=== PATIENT | female | born 1965 | race Caucasian/White ===

== ENCOUNTER 2017-10-07 | Emergency (ER) | payer BC ==
--- NOTE | 2017-10-07 20:25 | EDPHYS ---
Physician Documentation [facility] Name: Ilda Arndt Age: 52 yrs Sex: Female : 1965 Arrival Date: 10/07/2017 Time: 19:49 Bed 23 Private MD: Ruslan Landin V ED Physician Wade Choe HPI: 10/07 20:18 This 52 yrs old Female presents to ER via Ambulatory with complaints of gs Toothache. 20:18 The patient presents with broken tooth/teeth. The problem is located in the upper right gs first bicuspid. Onset: The symptoms/episode began/occurred 2 day(s) ago. Duration: The symptoms are continuous. Modifying factors: the symptoms are aggravated by nothing. Associated signs and symptoms: Pertinent negatives: fever. Severity of symptoms: At their worst the symptoms were moderate, in the emergency department the symptoms are unchanged. The patient has experienced similar episodes in the past, a few times. 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 - Social history:: Smoking status: Patient/guardian denies using tobacco. ROS: 20:18 All other systems are negative. gs Exam: 20:18 Head/Face: Normocephalic, atraumatic. Eyes: Pupils equal round and reactive to light, gs extra-ocular motions intact. Lids and lashes normal. Conjunctiva and sclera are non-icteric and not injected. Cornea within normal limits. Periorbital areas with no swelling, redness, or edema. Neck: Trachea midline, no thyromegaly or masses palpated, and no cervical lymphadenopathy. Supple, full range of motion without nuchal rigidity, or vertebral point tenderness. No Meningismus. Chest/axilla: Normal chest wall appearance and motion. Nontender with no deformity. No lesions are appreciated. 20:18 Constitutional: The patient appears alert, awake. 20:18 ENT: Dental exam: abscess, is not appreciated, cellulitis, is not appreciated, dental caries, that is mild, fractured teeth are noted, specifically the upper right first bicuspid (#5). Vital Signs: 19:57 BP 161 / 100; Pulse 76; Resp 16; Temp 97.7(O); Pulse Ox 100% on R/A; Weight 90.72 kg; la1 Height 5 ft. 4 in. (162.56 cm); 19:57 Body Mass Index 34.33 (90.72 kg, 162.56 cm) la1 MDM: 20:02 Patient medically screened. 20:18 Differential diagnosis: dental caries, gingivitis, dental abscess, pericoronitis. Data gs reviewed: vital signs, nurses notes. 20:30 ED course: discussed tramadol use pt understands and has taken tramadol and topamax gs together without side effect, i voiced concern to prescribe pr request due to painful condition. have given appropriate risks and benefits pt request drug. contraindication is not absolute. Administered Medications: No medications were administered Disposition: 18 20:24 Discharged to Home. Impression: Fracture of tooth (traumatic), Dental caries. - Condition is Stable. - Prescriptions for Amoxicillin 500 mg Oral Capsule - take 1 capsule by ORAL route every 8 hours for 10 days; 30 tablet. Ultram 50 mg Oral Tablet - take 1 tablet by ORAL route every 6 hours As needed; 10 tablet. - Medication Reconciliation Form, Thank You Letter, Antibiotic Education, Prescription Opioid Use form. - Follow up: Private Physician; When: 2 - 3 days; Reason: Re-evaluation by your physician. Signatures: Ty Chapa RN RN la1 Wade Choe MD MD Cindy Velásquez RN RN tl3
--- NOTE | 2017-10-07 20:25 | ER ---
Nurse's Notes [facility] Name: Ilda Arndt Age: 52 yrs Sex: Female : 1965 Arrival Date: 10/07/2017 Time: 19:49 Bed 23 Private MD: Ruslan Landin V Diagnosis: Fracture of tooth (traumatic);Dental caries Presentation: 10/07 19:55 Presenting complaint: Patient states: I am having dental pain that I think is caused by la1 an abscess. Pain for 3 days. I have a dental appointment tomorrow morning. Transition of care: patient was not received from another setting of care. Onset of symptoms was October 07, 2017. Care prior to arrival: None. 19:55 Method Of Arrival: Ambulatory la1 19:55 Acuity: ANDRE 5 la1 Triage Assessment: 20:27 EENT: No signs and/or symptoms were reported regarding the EENT system. tl3 20:28 EENT:. EENT:. 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 - Social history:: Smoking status: Patient/guardian denies using tobacco. Screenin:00 Abuse screen: Denies threats or abuse. Nutritional screening: No deficits noted. tl3 Tuberculosis screening: No symptoms or risk factors identified. Fall Risk None identified. Assessment: 20:00 General: Appears uncomfortable, well groomed, well developed, well nourished, Behavior tl3 is calm, cooperative, appropriate for age. Pain: Complains of pain in upper left first bicuspid and upper left second bicuspid Pain currently is 10 out of 10 on a pain scale. Neuro: Level of Consciousness is awake, alert, obeys commands, Oriented to person, place, time, situation, Appropriate for age. Cardiovascular: Reports None. Cardiovascular: Heart tones S1 S2 present. Respiratory: Airway is patent Trachea midline Respiratory effort is even, unlabored, Respiratory pattern is regular, symmetrical, Breath sounds are clear bilaterally. GI: No signs and/or symptoms were reported involving the gastrointestinal system. : No signs and/or symptoms were reported regarding the genitourinary system. EENT: No signs and/or symptoms were reported regarding the EENT system. Derm: No signs and/or symptoms reported regarding the dermatologic system. Musculoskeletal: No signs and/or symptoms reported regarding the musculoskeletal system. 20:29 Reassessment: No changes from previously documented assessment. Patient and/or family tl3 updated on plan of care and expected duration. Pain level reassessed. Dr Choe at bedside discussing POC. Vital Signs: 19:57 BP 161 / 100; Pulse 76; Resp 16; Temp 97.7(O); Pulse Ox 100% on R/A; Weight 90.72 kg; la1 Height 5 ft. 4 in. (162.56 cm); 19:57 Body Mass Index 34.33 (90.72 kg, 162.56 cm) la1 ED Course: 19:49 Patient arrived in ED. do 19:49 Ruslan Landin MD is Private Physician. do 19:56 Triage completed. la1 19:57 Arm band placed on left wrist. la1 19:58 Cindy Velásquez RN is Primary Nurse. tl3 19:59 Wade Choe MD is Attending Physician. gs 20:25 Resting quietly. tl3 20:25 Patient has correct armband on for positive identification. Bed in low position. tl3 20:25 No provider procedures requiring assistance completed. Patient did not have IV access tl3 during this emergency room visit. Administered Medications: No medications were administered Outcome: 20:24 Discharge ordered by . gs 20:47 Patient left the ED. tl3 Signatures: Ty Chapa RN RN la1 Franchesca Gordon Gregory, MD MD Cindy Velásquez RN RN tl3
== END 2017-10-07 20:47 | disposition home or self-care (01) ==
CPT/HCPCS: 99281

== ENCOUNTER 2018-01-17 23:33 | Emergency (ER) | payer BC ==
[2018-01-18] MEDS ORDERED: NA CHLORIDE 0.9% 1,000 ML ONE (01:01)
[2018-01-18] MEDS ORDERED: ONDANSETRON 4 MG/2 ML VIAL ONE (01:01)
[2018-01-18] MEDS ORDERED: KETOROLAC 30 MG/ML INJ ONE (01:01)
--- NOTE | 2018-01-18 02:07 | EDPHYS ---
Physician Documentation [facility] Name: Ilda Arndt Age: 52 yrs Sex: Female : 1965 Arrival Date: 01/17/2018 Time: 23:36 Bed 18 Private MD: ED Travis Garsia HPI: 01/18 00:35 This 52 yrs old Female presents to ER via Ambulatory with complaints of cp Headache. 00:35 The patient complains of pain to the all over. The patient describes the headache as cp aching. Onset: The symptoms/episode began/occurred yesterday, improved after taking Imitrex, but returned this morning. Associated signs and symptoms: Pertinent positives: nausea, Photophobia. Headache History: The patient has had previous headaches and this one is similar to previous episodes. 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 N/A - Post-menopause fc Historical: - Allergies: 23:54 Bactrim; fc 23:54 Biaxin; fc 23:54 Codeine; fc 23:54 Latex, Natural Rubber; fc - Home Meds: 23:54 Glucophage 1,000 mg Oral tab 2 times per day [Active]; Topamax 200 mg Oral tab 1 tab 2 fc times per day [Active]; vitamiin d daily [Active]; L-Methylfolate 7.5 mg Oral tab daily [Active]; - PMHx: 23:54 Arthritis; chiari malformation; Depression; ehler-danlos syndrome; Upper Extremity fc Thrombus; Diabetes - NIDDM; - PSHx: 23:54 Tubal ligation; Cholecystectomy; sinus surg; tummy tuck; breast reduction; fc - Immunization history:: Last tetanus immunization: up to date. - Social history:: Smoking status: Patient/guardian denies using tobacco. - Ebola Screening: : Patient negative for fever greater than or equal to 101.5 degrees Fahrenheit, and additional compatible Ebola Virus Disease symptoms Patient denies exposure to infectious person Patient denies travel to an Ebola-affected area in the 21 days before illness onset. ROS: 01/18 00:40 Constitutional: Negative for body aches, chills, fever, poor PO intake. cp 00:40 Eyes: Positive for photophobia, Negative for discharge, redness, vision loss. cp 00:40 ENT: Negative for drainage from ear(s), ear pain, sinus congestion, sinus pain, sore throat, difficulty swallowing, difficulty handling secretions. 00:40 Neck: Negative for pain with movement, pain at rest, stiffness, swollen nodes. 00:40 Cardiovascular: Negative for chest pain, palpitations. 00:40 Respiratory: Negative for cough, shortness of breath, wheezing. 00:40 Abdomen/GI: Positive for nausea, Negative for abdominal pain, vomiting, diarrhea, constipation. 00:40 : Negative for urinary symptoms. 00:40 Skin: Negative for cellulitis, rash. 00:40 Neuro: Positive for headache, Negative for altered mental status, dizziness, speech changes, weakness. 00:40 All other systems are negative. Exam: 00:47 Constitutional: The patient appears in no acute distress, alert, awake, cp non-diaphoretic, non-toxic, well developed, well nourished. 00:47 Head/Face: Normocephalic, atraumatic. Eyes: Pupils equal round and reactive to light, cp extra-ocular motions intact. Lids and lashes normal. Conjunctiva and sclera are non-icteric and not injected. Cornea within normal limits. Periorbital areas with no swelling, redness, or edema. ENT: Nares patent. No nasal discharge, no septal abnormalities noted. Tympanic membranes are normal and external auditory canals are clear. Oropharynx with no redness, swelling, or masses, exudates, or evidence of obstruction, uvula midline. Mucous membranes moist. Neck: Trachea midline, no thyromegaly or masses palpated, and no cervical lymphadenopathy. Supple, full range of motion without nuchal rigidity, or vertebral point tenderness. No Meningismus. 00:47 Chest/axilla: Inspection: normal, Palpation: is normal, no crepitus, no tenderness. 00:47 Cardiovascular: Rate: normal, Rhythm: regular, JVD: is not appreciated. 00:47 Respiratory: the patient does not display signs of respiratory distress, Respirations: normal, no use of accessory muscles, no retractions, no splinting, no tachypnea, labored breathing, is not present, Breath sounds: are clear throughout, no decreased breath sounds, no stridor, no wheezing. 00:47 Abdomen/GI: Exam negative for discomfort, distension, guarding, Inspection: abdomen appears normal. 00:47 Back: pain, is absent, ROM is normal. 00:47 Skin: cellulitis, is not appreciated, no rash present. 00:47 Neuro: Orientation: to person, place \T\ time. Mentation: lucid, able to follow commands, Cerebellar function: is grossly normal, Motor: moves all fours, strength is normal, Sensation: is normal. Vital Signs: 01/17 23:56 BP 139 / 76; Pulse 96; Resp 18; Temp 97.9(O); Pulse Ox 98% on R/A; Weight 88.9 kg (R); fc Height 5 ft. 4 in. (162.56 cm) (R); Pain 7/10; 01/18 00:56 BP 142 / 70; Pulse 60; Resp 16 S; Pulse Ox 100% on R/A; bs1 01:56 BP 134 / 89; Pulse 76; Resp 16; Temp 98; Pulse Ox 98% on R/A; Pain 4/10; bs1 01/17 23:56 Body Mass Index 33.64 (88.90 kg, 162.56 cm) fc MDM: 00:17 Patient medically screened. cp 01:00 Differential diagnosis: cluster headache, hypertensive headache, hyponatremia, cp intracerebral hemorrhage, meningitis, migraine, sinusitis, subarachnoid bleed, tension headache, trigeminal neuralgia. 02:05 Data reviewed: vital signs, nurses notes. Response to treatment: the patient's symptoms cp have markedly improved after treatment, Patient reports headache and nausea improved. Will discharge to home for continued monitoring. 01/18 00:34 Order name: IV; Complete Time: 01:10 cp Administered Medications: 01:10 Drug: Zofran 4 mg Route: IVP; Site: left antecubital; bs1 02:37 Follow up: Response: No adverse reaction bs1 01:10 Drug: TORadol 30 mg Route: IVP; Site: left antecubital; bs1 02:37 Follow up: Response: No adverse reaction bs1 01:12 Drug: NS 0.9% 1000 ml Route: IV; Rate: 1 bolus; Site: left antecubital; bs1 02:37 Follow up: IV Status: Completed infusion bs1 Disposition: 02:30 Chart complete. cp 06:54 Co-signature as Attending Physician, Travis Atwood MD I agree with the assessment and kirstin plan of care. Disposition: 07/26/18 02:06 Discharged to Home. Impression: Headache. - Condition is Stable. - Discharge Instructions: Migraine Headache. - Prescriptions for Imitrex 50 mg Oral Tablet - take 1 tablet by ORAL route one time - x 1 dose with fluids as early as possible after the onset of a migraine attack; if headache returns, the dose may be repeated after 2 hours, not to exceed a total daily dose of 4 tablets;. Zofran 4 mg Oral Tablet - take 1 tablet by ORAL route every 12 hours As needed; 20 tablet. - Medication Reconciliation Form, Thank You Letter, Antibiotic Education, Prescription Opioid Use form. - Follow up: Private Physician; When: 1 - 2 days; Reason: Recheck today's complaints. - Problem is an acute exacerbation. - Symptoms have improved. Signatures: Travis Atwood MD MD cha Chretien, Felicia, RN RN fc Travis Marie PA PA cp Salazar, Brittany, RN RN bs1 Corrections: (The following items were deleted from the chart) 02:38 02:06 01/18/2018 02:06 Discharged to Home. Impression: Headache. Condition is Stable. bs1 Forms are Medication Reconciliation Form, Thank You Letter, Antibiotic Education, Prescription Opioid Use. Follow up: Private Physician; When: 1 - 2 days; Reason: Recheck today's complaints. Problem is an acute exacerbation. Symptoms have improved. cp
--- NOTE | 2018-01-18 02:07 | ER ---
Nurse's Notes [facility] Name: Ilda Arndt Age: 52 yrs Sex: Female : 1965 Arrival Date: 01/17/2018 Time: 23:36 Bed 18 Private MD: Diagnosis: Headache Presentation: 01/17 23:50 Presenting complaint: Patient states: that she is having a headache. Went to the dentist and her bp was high. No work done. Positive photophobia and nausea. Transition of care: patient was not received from another setting of care. Onset of symptoms was January 17, 2018 at 07:00. Risk Assessment: Do you want to hurt yourself or someone else? Patient reports no desire to harm self or others. Initial Sepsis Screen: Does the patient meet any 2 criteria? No. Patient's initial sepsis screen is negative. Does the patient have a suspected source of infection? No. Patient's initial sepsis screen is negative. Care prior to arrival: Medication(s) given: Motrin, 800 mg, last at 1600. 23:50 Method Of Arrival: Ambulatory 23:50 Acuity: ANDRE 3 Triage Assessment: 23:55 Headache History: The patient has had previous headaches and this one is similar to previous episodes. General: Appears uncomfortable, obese, Behavior is calm, cooperative, appropriate for age. Pain: Complains of pain in head Pain currently is 7 out of 10 on a pain scale. Quality of pain is described as aching, throbbing, Pain began today Is continuous, Also complains of nausea, photophobia. EENT: No deficits noted. Neuro: Level of Consciousness is awake, alert, obeys commands, Oriented to person, place, time, situation, Moves all extremities. Gait is steady, Speech is normal, Reports headache in entire. Cardiovascular: No deficits noted. Respiratory: No deficits noted. GI: No deficits noted. : No deficits noted. Derm: Skin is pink, warm \\T\\ dry. Musculoskeletal: Circulation, motion, and sensation intact. Capillary refill < 3 seconds, Range of motion: intact in all extremities. 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 - Social history:: Smoking status: Patient/guardian denies using tobacco. - Ebola Screening: : Patient negative for fever greater than or equal to 101.5 degrees Fahrenheit, and additional compatible Ebola Virus Disease symptoms Patient denies exposure to infectious person Patient denies travel to an Ebola-affected area in the 21 days before illness onset. Screenin/26 01:14 Abuse screen: Denies threats or abuse. Denies injuries from another. Nutritional bs1 screening: No deficits noted. Tuberculosis screening: No symptoms or risk factors identified. Fall Risk None identified. Assessment: 00:30 General: Appears in no apparent distress. uncomfortable. Pain: Complains of pain in bs1 headache Pain does not radiate. Neuro: Level of Consciousness is awake, alert, obeys commands, Oriented to person, place, time, situation, Appropriate for age Speech is slurred, Facial symmetry appears normal, Reports dizziness, headache in entire. Cardiovascular: Denies chest pain, shortness of breath, Heart tones S1 S2 present Capillary refill < 3 seconds Patient's skin is warm and dry. Respiratory: Airway is patent Trachea midline Respiratory effort is even, unlabored, Respiratory pattern is regular, symmetrical, Breath sounds are clear bilaterally. GI: No signs and/or symptoms were reported involving the gastrointestinal system. : No signs and/or symptoms were reported regarding the genitourinary system. EENT: No signs and/or symptoms were reported regarding the EENT system. Derm: Skin is intact, Skin is pink, warm \\T\\ dry. normal. Musculoskeletal: Circulation, motion, and sensation intact. Capillary refill < 3 seconds, Range of motion: intact in all extremities. 01:30 Reassessment: No changes from previously documented assessment. Patient and/or family bs1 updated on plan of care and expected duration. Pain level reassessed. Patient is alert, oriented x 3, equal unlabored respirations, skin warm/dry/pink. Patient covering eyes with hands. 02:30 Reassessment: Patient appears in no apparent distress at this time. Patient and/or bs1 family updated on plan of care and expected duration. Pain level reassessed. Patient is alert, oriented x 3, equal unlabored respirations, skin warm/dry/pink. Patient states "My head is not hurting as bad as it was." Patient states feeling better. Patient states symptoms have improved. Vital Signs: 01/17 23:56 BP 139 / 76; Pulse 96; Resp 18; Temp 97.9(O); Pulse Ox 98% on R/A; Weight 88.9 kg (R); fc Height 5 ft. 4 in. (162.56 cm) (R); Pain 7/10; 01/18 00:56 BP 142 / 70; Pulse 60; Resp 16 S; Pulse Ox 100% on R/A; bs1 01:56 BP 134 / 89; Pulse 76; Resp 16; Temp 98; Pulse Ox 98% on R/A; Pain 4/10; bs1 01/17 23:56 Body Mass Index 33.64 (88.90 kg, 162.56 cm) ED Course: 01/17 23:36 Patient arrived in ED. ds1 23:52 Triage completed. fc 23:54 Arm band placed on Patient placed in waiting room, Patient notified of wait time. 01/18 00:17 Travis Marie PA is PHCP. cp 00:17 Travis Atwood MD is Attending Physician. cp 00:25 Rebekah Bergman RN is Primary Nurse. bs1 01:00 Inserted saline lock: 24 gauge in left antecubital area, using aseptic technique. bs1 01:15 Patient has correct armband on for positive identification. Bed in low position. Call bs1 light in reach. Side rails up X 1. Pulse ox on. NIBP on. 02:34 No provider procedures requiring assistance completed. IV discontinued, bleeding bs1 controlled, No redness/swelling at site. Pressure dressing applied. Administered Medications: 01:10 Drug: Zofran 4 mg Route: IVP; Site: left antecubital; bs1 02:37 Follow up: Response: No adverse reaction bs1 01:10 Drug: TORadol 30 mg Route: IVP; Site: left antecubital; bs1 02:37 Follow up: Response: No adverse reaction bs1 01:12 Drug: NS 0.9% 1000 ml Route: IV; Rate: 1 bolus; Site: left antecubital; bs1 02:37 Follow up: IV Status: Completed infusion bs1 Outcome: 02:06 Discharge ordered by MD. cp 02:35 Discharged to home ambulatory. bs1 02:35 Condition: stable 02:35 Discharge instructions given to patient, Instructed on discharge instructions, follow up and referral plans. medication usage, Demonstrated understanding of instructions, follow-up care, medications, Prescriptions given X 2. 02:38 Patient left the ED. bs1 Signatures: Alexa Seymour RN RN Holley Alaniz ds1 Travis Marie PA PA cp Salazar, Brittany, RN RN bs1 Corrections: (The following items were deleted from the chart) 01/17 23:55 23:54 Arm band placed on Patient placed in an exam room, [facility], [facility]
== END 2018-01-18 02:38 | disposition home or self-care (01) ==
LOC: ER 23:33
DX: R51 Headache (principal); E11.9 Type 2 diabetes mellitus without complications; Z88.6 Allergy status to analgesic agent; Z88.3 Allergy status to other anti-infective agents; Z91.040 Latex allergy status
CPT/HCPCS: 96361; 96374; 96375; 99284; J2405; J7030

== ENCOUNTER 2018-01-23 17:43 | Emergency (ER) | payer BC ==
[2018-01-23] MEDS ORDERED: FAMOTIDINE 20 MG/2 ML VIAL IV ONE (18:25)
[2018-01-23] MEDS ORDERED: NA CHLORIDE 0.9% 1,000 ML ONE (18:25)
[2018-01-23] MEDS ORDERED: predniSONE 20 MG TAB ONE (18:25)
[2018-01-23] MEDS ORDERED: DIPHENHYDRAMINE 50 MG/ML VIAL ONE (18:25)
[2018-01-23] MEDS ORDERED: METHYLPREDNISOLONE 125 MG INJ ONE (18:25)
[2018-01-23 18:45] LABS: Hematocrit 40.5 % (36.0-45.0); MCH 31.3 pg (27.0-35.0); MCV 89.4 fL (80-100); MPV 8.1 fL (7.6-11.3); RBC Red Blood Cell Count 4.54 M/uL (3.86-4.86)
[2018-01-23 18:57] LABS: Albumin 3.9 g/dL (3.4-5.0); Bilirubin Total 0.5 mg/dL (0.2-1.0); Potassium 3.4 mmol/L (3.5-5.1); Protein, Total 7.6 g/dL (6.4-8.2)
--- NOTE | 2018-01-23 18:58 | ER ---
Nurse's Notes [facility] Name: Ilda Arndt Age: 52 yrs Sex: Female : 1965 Arrival Date: 01/23/2018 Time: 17:44 Bed 23 Private MD: Ruslan Landin V Diagnosis: Urticaria;Bee allergy status;Type 2 diabetes mellitus;Urinary tract infection, site not specified Presentation: 01/23 17:52 Presenting complaint: Patient states: was at a resale shop and a mud dauber insect iw brushed against her left forearm, noticed a red welt a few minutes later, pt took Benadryl but and redness to arm has subsided but now has hives to top of her head, very itchy and feels like her throat is "fluffy", 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 Transition of care: patient was not received from another setting of care. Onset: The symptoms/episode began/occurred 1 hour(s) ago. Anaphylaxis evaluation, no signs or symptoms of anaphylaxis were noted. Onset of symptoms was January 23, 2018. Risk Assessment: Do you want to hurt yourself or someone else? Patient reports no desire to harm self or others. Initial Sepsis Screen: Does the patient meet any 2 criteria? No. Patient's initial sepsis screen is negative. Does the patient have a suspected source of infection? No. Patient's initial sepsis screen is negative. Care prior to arrival: Medication(s) given: Benadryl PO. 17:52 Method Of Arrival: Ambulatory iw 17:52 Acuity: ANDRE 3 iw Historical: - Allergies: 17:57 Bactrim; iw 17:57 Biaxin; iw 17:57 Codeine; iw 17:57 Latex, Natural Rubber; iw - PMHx: 17:57 Arthritis; chiari malformation; Depression; Diabetes - NIDDM; ehler-danlos syndrome; iw Upper Extremity Thrombus; - PSHx: 17:57 Tubal ligation; Cholecystectomy; sinus surg; tummy tuck; breast reduction; iw - Immunization history:: Adult Immunizations up to date. - Social history:: Smoking status: Patient/guardian denies using tobacco. - Ebola Screening: : No symptoms or risks identified at this time. - Family history:: not pertinent. Screenin:07 Abuse screen: Denies threats or abuse. Denies injuries from another. Nutritional hb screening: No deficits noted. Tuberculosis screening: No symptoms or risk factors identified. Fall Risk None identified. Assessment: 18:08 General: Appears in no apparent distress. Behavior is calm, cooperative. Pain: Denies hb pain. Neuro: Level of Consciousness is awake, alert, obeys commands, Oriented to person, place, time, situation. Cardiovascular: Heart tones S1 S2 present Capillary refill < 3 seconds Patient's skin is warm and dry. Respiratory: Airway is patent Trachea midline Respiratory effort is even, unlabored, Respiratory pattern is regular, symmetrical, Breath sounds are clear bilaterally. GI: No signs and/or symptoms were reported involving the gastrointestinal system. : No signs and/or symptoms were reported regarding the genitourinary system. EENT: No signs and/or symptoms were reported regarding the EENT system. Derm: Skin is intact, is healthy with good turgor, Rash noted that is urticaria, on scalp. Musculoskeletal: No signs and/or symptoms reported regarding the musculoskeletal system. Vital Signs: 17:56 BP 141 / 97; Pulse 90; Resp 18 S; Temp 98.2; Pulse Ox 100% on R/A; Weight 89.81 kg; iw Height 5 ft. 4 in. (162.56 cm); Pain 0/10; 18:41 BP 136 / 86; Pulse 80; Resp 16; Pulse Ox 100% on R/A; Pain 0/10; hb 17:56 Body Mass Index 33.99 (89.81 kg, 162.56 cm) iw ED Course: 17:44 Patient arrived in ED. sb2 17:44 Ruslan Landin MD is Private Physician. sb2 17:52 Travis Atwood MD is Attending Physician. kirstin 17:56 Triage completed. iw 17:56 Arm band placed on. iw 18:07 Yina Jansen, RN is Primary Nurse. hb 18:07 Patient has correct armband on for positive identification. Bed in low position. Call hb light in reach. Side rails up X 1. 18:07 Inserted saline lock: 20 gauge in right antecubital area, using aseptic technique. hb 18:49 Comprehensive Metabolic Panel Sent. hb 18:49 CBC w/o diff Sent. hb 18:56 Ruslan Landin MD is Referral Physician. kirstin 20:35 No provider procedures requiring assistance completed. IV discontinued, intact, mg2 bleeding controlled, No redness/swelling at site. Pressure dressing applied. Administered Medications: 18:20 Drug: NS 0.9% 1000 ml Route: IV; Rate: 1 bolus; Site: left antecubital; hb 19:02 Follow up: IV Status: Completed infusion hb 01/24 07:18 Follow up: Response: No adverse reaction hb 01/23 18:20 Drug: Benadryl 25 mg Route: IVP; Site: left antecubital; hb 19:01 Follow up: Response: No adverse reaction; Marked relief of symptoms hb 18:20 Drug: Pepcid 40 mg Route: IVP; Site: left antecubital; hb 19:01 Follow up: Response: No adverse reaction; Marked relief of symptoms hb 18:20 Drug: SOLU-Medrol 125 mg Route: IVP; Site: left antecubital; hb 19:01 Follow up: Response: No adverse reaction; Marked relief of symptoms hb 18:20 Drug: predniSONE 60 mg Route: PO; hb 19:01 Follow up: Response: No adverse reaction; Marked relief of symptoms hb 19:01 Drug: Cipro 250 mg Route: PO; hb 20:36 Follow up: Response: No adverse reaction mg2 20:09 Drug: Zofran 4 mg Route: IVP; Site: left antecubital; mg2 20:35 Follow up: Response: No adverse reaction; Marked relief of symptoms mg2 Outcome: 18:57 Discharge ordered by MD. fulton 20:35 Discharged to home ambulatory. mg2 20:35 Condition: stable 20:35 Discharge instructions given to patient, Instructed on discharge instructions, follow up and referral plans. medication usage, Demonstrated understanding of instructions, follow-up care, medications, Prescriptions given X 5 20:36 Patient left the ED. mg2 Addendum: 01/28/2018 08:08 Addendum: Culture Results: Positive urine culture. culture report reviewed by Dr. jaqueline Atwood and sent to Dr. Landin Bacteria is resistant to, has intermediate sensitivity, or is not tested against prescribed antibiotics. Report given to VIKRAM for further evaluation and then to event management consultant for follow up with patient. Signatures: Travis Atwood MD MD cha Williams, Irene, RN RN Yina Jansen RN RN Sera Medeiros 2 Brooks Renae RN RN mg2
--- NOTE | 2018-01-23 18:58 | EDPHYS ---
Physician Documentation [facility] Name: Ilda Arndt Age: 52 yrs Sex: Female : 1965 Arrival Date: 01/23/2018 Time: 17:44 Bed 23 Private MD: Ruslan Landin V ED Physician Travis Atwood HPI: 01/23 18:17 This 52 yrs old Female presents to ER via Ambulatory with complaints of kirstin Allergic Reaction. 18:17 The patient presents with difficulty swallowing, localized swelling, nasal itching, kirstin redness of skin. Onset: The symptoms/episode began/occurred just prior to arrival. Associated signs and symptoms: The patient has no apparent associated signs or symptoms. Possible causes: At home the patient or guardian has treated the symptoms with Benadryl. Severity of symptoms: At their worst the symptoms were mild. The patient has not experienced similar symptoms in the past. Historical: - Allergies: 17:57 Bactrim; iw 17:57 Biaxin; iw 17:57 Codeine; iw 17:57 Latex, Natural Rubber; iw - PMHx: 17:57 Arthritis; chiari malformation; Depression; Diabetes - NIDDM; ehler-danlos syndrome; iw Upper Extremity Thrombus; - PSHx: 17:57 Tubal ligation; Cholecystectomy; sinus surg; tummy tuck; breast reduction; iw - Immunization history:: Adult Immunizations up to date. - Social history:: Smoking status: Patient/guardian denies using tobacco. - Ebola Screening: : No symptoms or risks identified at this time. - Family history:: not pertinent. ROS: 18:17 Constitutional: Negative for fever, chills, and weight loss, Eyes: Negative for injury, kirstin pain, redness, and discharge, Neck: Negative for injury, pain, and swelling, Cardiovascular: Negative for chest pain, palpitations, and edema, Respiratory: Negative for shortness of breath, cough, wheezing, and pleuritic chest pain, Abdomen/GI: Negative for abdominal pain, nausea, vomiting, diarrhea, and constipation, Back: Negative for injury and pain, : Negative for injury, bleeding, discharge, and swelling, MS/Extremity: Negative for injury and deformity, Neuro: Negative for headache, weakness, numbness, tingling, and seizure, Psych: Negative for depression, anxiety, suicide ideation, homicidal ideation, and hallucinations, Allergy/Immunology: Negative for hives, rash, and allergies, Endocrine: Negative for neck swelling, polydipsia, polyuria, polyphagia, and marked weight changes. 18:17 ENT: Positive for difficulty swallowing, sinus congestion. 18:17 Skin: Positive for rash, of the face, right arm and left arm. Exam: 18:17 Constitutional: This is a well developed, well nourished patient who is awake, alert, kirstin and in no acute distress. Head/Face: Normocephalic, atraumatic. Eyes: Pupils equal round and reactive to light, extra-ocular motions intact. Lids and lashes normal. Conjunctiva and sclera are non-icteric and not injected. Cornea within normal limits. Periorbital areas with no swelling, redness, or edema. ENT: Nares patent. No nasal discharge, no septal abnormalities noted. Tympanic membranes are normal and external auditory canals are clear. Oropharynx with no redness, swelling, or masses, exudates, or evidence of obstruction, uvula midline. Mucous membranes moist. Neck: Trachea midline, no thyromegaly or masses palpated, and no cervical lymphadenopathy. Supple, full range of motion without nuchal rigidity, or vertebral point tenderness. No Meningismus. Chest/axilla: Normal chest wall appearance and motion. Nontender with no deformity. No lesions are appreciated. Cardiovascular: Regular rate and rhythm with a normal S1 and S2. No gallops, murmurs, or rubs. Normal PMI, no JVD. No pulse deficits. Respiratory: Lungs have equal breath sounds bilaterally, clear to auscultation and percussion. No rales, rhonchi or wheezes noted. No increased work of breathing, no retractions or nasal flaring. Abdomen/GI: Soft, non-tender, with normal bowel sounds. No distension or tympany. No guarding or rebound. No evidence of tenderness throughout. Back: No spinal tenderness. No costovertebral tenderness. Full range of motion. MS/ Extremity: Pulses equal, no cyanosis. Neurovascular intact. Full, normal range of motion. Neuro: Awake and alert, GCS 15, oriented to person, place, time, and situation. Cranial nerves II-XII grossly intact. Motor strength 5/5 in all extremities. Sensory grossly intact. Cerebellar exam normal. Normal gait. Psych: Awake, alert, with orientation to person, place and time. Behavior, mood, and affect are within normal limits. 18:17 Skin: Appearance: Color: normal in color, Temperature: normal temperature, Moisture: normal moisture, petechiae, not noted, ecchymosis, not noted, diaphoresis is not appreciated. Vital Signs: 17:56 BP 141 / 97; Pulse 90; Resp 18 S; Temp 98.2; Pulse Ox 100% on R/A; Weight 89.81 kg; iw Height 5 ft. 4 in. (162.56 cm); Pain 0/10; 18:41 BP 136 / 86; Pulse 80; Resp 16; Pulse Ox 100% on R/A; Pain 0/10; hb 17:56 Body Mass Index 33.99 (89.81 kg, 162.56 cm) iw MDM: 17:52 Patient medically screened. [facility] 18:22 Data reviewed: vital signs, nurses notes, lab test result(s), CBC, electrolytes, [facility] hepatic panel. 01/23 18:17 Order name: CBC w/o diff [facility] 01/23 18:17 Order name: Comprehensive Metabolic Panel [facility] 01/23 18:18 Order name: CBC without Diff; Complete Time: 18:55 [facility] 01/23 18:18 Order name: Comprehensive Metabolic Panel; Complete Time: 19:00 [facility] 01/23 18:55 Order name: Urine Dipstick--Ancillary (enter results); Complete Time: 19:45 01/23 18:56 Order name: Urine Culture [facility] 01/23 18:17 Order name: Urine Dipstick-Ancillary (obtain specimen); Complete Time: 18:38 [facility] 01/23 19:03 Order name: PO challenge: juice x 1; Complete Time: 20:36 [facility] Administered Medications: 18:20 Drug: NS 0.9% 1000 ml Route: IV; Rate: 1 bolus; Site: left antecubital; hb 19:02 Follow up: IV Status: Completed infusion 01/24 07:18 Follow up: Response: No adverse reaction 01/23 18:20 Drug: Benadryl 25 mg Route: IVP; Site: left antecubital; hb 19:01 Follow up: Response: No adverse reaction; Marked relief of symptoms hb 18:20 Drug: Pepcid 40 mg Route: IVP; Site: left antecubital; hb 19:01 Follow up: Response: No adverse reaction; Marked relief of symptoms hb 18:20 Drug: SOLU-Medrol 125 mg Route: IVP; Site: left antecubital; hb 19:01 Follow up: Response: No adverse reaction; Marked relief of symptoms hb 18:20 Drug: predniSONE 60 mg Route: PO; hb 19:01 Follow up: Response: No adverse reaction; Marked relief of symptoms hb 19:01 Drug: Cipro 250 mg Route: PO; hb 20:36 Follow up: Response: No adverse reaction mg2 20:09 Drug: Zofran 4 mg Route: IVP; Site: left antecubital; mg2 20:35 Follow up: Response: No adverse reaction; Marked relief of symptoms mg2 Disposition: 01/23/18 18:57 Discharged to Home. Impression: Urticaria, Bee allergy status, Type 2 diabetes mellitus, Urinary tract infection, site not specified. - Condition is Stable. - Discharge Instructions: Allergies, Adult, Bee, Wasp, or Hornet Sting, Adult, Type 2 Diabetes Mellitus, Diagnosis, Adult, Hives, Urinary Tract Infection, Adult, Urinary Tract Infection, Adult, [id number], Diabetes Mellitus and Food, Hives, Zxhe-bu-Ftnh, Type 2 Diabetes Mellitus, Diagnosis, Adult, Xkij-pv-Fexs, Allergies, Jpov-oc-Rcvg. - Prescriptions for Benadryl 25 mg Oral Capsule - take 1 capsule by ORAL route every 6 hours As needed; 30 tablet. Pepcid 20 mg Oral Tablet - take 1 tablet by ORAL route every 12 hours for 10 days; 20 tablet. Prednisone 20 mg Oral Tablet - take 2 tablet by ORAL route once daily for 5 days; 10 tablet. EpiPen 0.3 mg Injection auto- injector - inject 1 pen by INTRAMUSCULAR route one time Inject into the outer portion of the thigh, through clothing if necessary. Indicated in the emergency treatment of allergic reactions; 1 box. Cipro 250 mg Oral Tablet - take 1 tablet by ORAL route every 12 hours; 10 tablet. Zofran 4 mg Oral Tablet - take 1 tablet by ORAL route every 12 hours As needed; 10 tablet. - Medication Reconciliation Form, Thank You Letter, Antibiotic Education, Prescription Opioid Use form. - Follow up: Ruslan Landin; When: 1 - 2 days; Reason: Recheck today's complaints, Continuance of care, Re-evaluation by your physician. - Problem is new. - Symptoms have improved. Signatures: Dispatcher [employer] EDTravis Posada MD MD cha Williams, Irene RN RN Yina Jansen, NAKIA RN Brooks Renae, NAKIA RN mg2 Corrections: (The following items were deleted from the chart) 20:36 18:57 01/23/2018 18:57 Discharged to Home. Impression: Urticaria; Bee allergy status; mg2 Type 2 diabetes mellitus; Urinary tract infection, site not specified. Condition is Stable. Discharge Instructions: Allergies, Adult, Bee, Wasp, or Hornet Sting, Adult, Hives, Hives, Kpmy-ts-Nlht, Allergies, Sxku-[id number]. Prescriptions for Benadryl 25 mg Oral Capsule - take 1 capsule by ORAL route every 6 hours As needed; 30 tablet, Pepcid 20 mg Oral Tablet - take 1 tablet by ORAL route every 12 hours for 10 days; 20 tablet, Prednisone 20 mg Oral Tablet - take 2 tablet by ORAL route once daily for 5 days; 10 tablet, EpiPen 0.3 mg Injection auto-injector - inject 1 pen by INTRAMUSCULAR route one time Inject into the outer portion of the thigh, through clothing if necessary. Indicated in the emergency treatment of allergic reactions; 1 box. and Forms are Medication Reconciliation Form, Thank You Letter, Antibiotic Education, Prescription Opioid Use. Follow up: Ruslan Landin; When: 1 - 2 days; Reason: Recheck today's complaints, Continuance of care, Re-evaluation by your physician. Problem is new. Symptoms have improved. kirstin
[2018-01-23] MEDS ORDERED: CIPROFLOXACIN HCL 500 MG TAB ONE (19:03)
[2018-01-23 19:10] LABS: Urine Blood NEGATIVE (NEG); Urine Glucose NEGATIVE (NEG); Urine Protein NEGATIVE (NEG); Urine Specific Gravity 1.015 (1.005-1.030); Urine pH 7.5 (5.0-7.0)
[2018-01-23] MEDS ORDERED: ONDANSETRON 4 MG/2 ML VIAL ONE (19:50)
== END 2018-01-23 20:36 | disposition home or self-care (01) ==
LOC: ER 17:43
DX: L50.9 Urticaria, unspecified (principal); E11.9 Type 2 diabetes mellitus without complications; N39.0 Urinary tract infection, site not specified; Z88.5 Allergy status to narcotic agent; Z88.8 Allergy status to other drugs, medicaments and biological substances; Z91.030 Bee allergy status; Z91.040 Latex allergy status; Q79.6 Ehlers-Danlos syndromes; Q07.00 Arnold-Chiari syndrome without spina bifida or hydrocephalus
CPT/HCPCS: 36415; 80053; 81003; 85027; 87077; 87086; 87088; 87186; 96361; 96374; 96375; 99284; J2405; J2930; J7030; J7512

== ENCOUNTER 2018-05-20 20:07 | Emergency (ER) | payer BC ==
[2018-05-20] MEDS ORDERED: NA CHLORIDE 0.9% 1,000 ML ONE (21:37)
[2018-05-20 22:14] LABS: Absolute Monocytes 0.5 K/uL (0.1-1.3); Basophils % 0.6 % (0-1.3); Eosinophils % 36.4 % (0-4.4); Hematocrit 38.8 % (36.0-45.0); Lymphocytes % 22.9 % (15.3-44.8); MCH 31.2 pg (27.0-35.0); MCV 90.7 fL (80-100); MPV 8.1 fL (7.6-11.3); RBC Red Blood Cell Count 4.28 M/uL (3.86-4.86)
[2018-05-20 22:20] LABS: Urine Appearance TURBID; Urine Bilirubin NEGATIVE (NEG); Urine Blood NEGATIVE (NEG); Urine Color YELLOW; Urine Glucose NEGATIVE (NEG); Urine Protein NEGATIVE (NEG); Urine Urobilinogen 0.2 mg/dL (0.2-1.0)
[2018-05-20 22:21] LABS: Urine Microscopic Reflex ORDER UMIC
[2018-05-20 22:23] LABS: Urine Amorphous Sediment 1+ /HPF (NONE SEEN); Urine Bacteria >50 /HPF (<20); Urine Culture Reflex Order REFLEXED; Urine RBC <5 /HPF (NONE SEEN)
[2018-05-20 22:25] LABS: BUN Blood Urea Nitrogen 14 mg/dL (7-18); Bicarbonate 25 mmol/L (21-32); Glucose Level 92 mg/dL (74-106); Potassium 3.2 mmol/L (3.5-5.1); Sodium Level 146 mmol/L (136-145); Troponin (Emerg Dept Use Only) < 0.02 ng/mL (0.0-0.045)
[2018-05-20 22:31] LABS: Urine Blood NEGATIVE (NEG); Urine Glucose NEGATIVE (NEG); Urine Protein NEGATIVE (NEG); Urine Specific Gravity 1.015 (1.005-1.030)
[2018-05-20] MEDS ORDERED: TRAMADOL HCL 50 MG TAB ONE (22:32)
[2018-05-20] MEDS ORDERED: POTASSIUM CL SA 10 MEQ TAB PO ONE (22:46)
[2018-05-20 22:49] LABS: Blood Morphology Comment NOT SEEN (NOT SEEN); Platelet Estimate ADEQ
[2018-05-20] MEDS ORDERED: DIPHENHYDRAMINE 50 MG/ML VIAL ONE (23:41)
[2018-05-20] MEDS ORDERED: NA CHLORIDE 0.9% 100 ML IV ONE (23:41)
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
--- NOTE | 2018-05-21 07:32 | EKG ---
Test Date: 2018-05-20 Test Time: 22:42:00 Ammonia Technician: TL MEASUREMENT RESULTS: Intervals: Rate: 60 MT: 148 QRSD: 72 QT: 428 QTc: 428 [place]: P: 45 MT: 148 QRS: 16 T: 41 INTERPRETIVE STATEMENTS: Normal sinus rhythm with sinus arrhythmia Normal ECG Compared to ECG 11/25/2016 08:02:01 Sinus bradycardia no longer present Myocardial infarct finding no longer present Electronically Signed On 05-21-18 07:32:01 PROFESSOR OF PSYCHOLOGY by Servando Mchugh
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
== END 2018-05-21 01:04 | disposition home or self-care (01) ==
LOC: ER 20:07
DX: S20.219A Contusion of unspecified front wall of thorax, initial encounter (principal); S16.1XXA Strain of muscle, fascia and tendon at neck level, initial encounter; R91.8 Other nonspecific abnormal finding of lung field; K76.9 Liver disease, unspecified; V49.50XA Passenger injured in collision with unspecified motor vehicles in traffic accident, initial encounter; F32.9 Major depressive disorder, single episode, unspecified; E11.9 Type 2 diabetes mellitus without complications; Z88.1 Allergy status to other antibiotic agents; Z88.5 Allergy status to narcotic agent; Z88.8 Allergy status to other drugs, medicaments and biological substances; Z91.040 Latex allergy status; Z91.048 Other nonmedicinal substance allergy status
CPT/HCPCS: 36415; 70450; 71260; 72125; 74177; 80048; 81003; 81015; 84484; 85025; 87086; 87088; 93005; 96360; 96361; 99285; J7030; Q9967

== ENCOUNTER 2018-10-18 20:51 | Emergency (ER) | payer BC ==
--- OUTSIDE RECORDS SUMMARY | 2018-10-18 20:53 | XMS REPORT | Clinical Summary ---
:1965 Author Organization [facility] Address [address] [place] [address] Care Team Providers Name Role Phone Ruslan Landin MD Primary Care Provider Allergies Active Allergy Reactions Severity Noted Date Comments Clarithromycin Rash Low 05/24/2018 Codeine Hives Medium 05/24/2018 Latex, Natural Rubber Hives High 05/24/2018 Medications Medication Sig Dispensed Refills Start Date End Date Status cholecalciferol, 0 05/26/2017 Active vitamin D3, (VITAMIN D3) 1,000 unit capsule epINEPHrine 0 05/18/2018 Active (EPIPEN) 0.3 mg/0.3 mL auto-injector pentazocine-naloxon Take 1 tablet 0 05/09/2018 Active e (TALWIN NX) by mouth as 50-0.5 mg per needed. tablet selegiline Take 5 mg by 0 05/02/2018 Active (ELDEPRYL) 5 mg mouth daily. capsule topiramate Take 200 mg 0 05/26/2000 Active (TOPAMAX) 200 MG by mouth 2 tablet (two) times a day. hydrOXYzine Take 50 mg by 0 Active (VISTARIL) 25 MG mouth 2 (two) capsule times a day as needed for itching. ALPRAZolam (XANAX) 0 05/05/2018 09/06/2018 Discontinued 0.25 MG tablet amoxicillin-pot 0 05/09/2018 09/06/2018 Discontinued clavulanate (AUGMENTIN) 875-125 mg per tablet selegiline 0 05/26/2005 09/06/2018 Discontinued (ELDEPRYL) 5 mg capsule Active Problems Problem Noted Date Lung nodule 05/24/2018 Encounters Date Type Specialty Care Team Description 09/24/2018 Orders Only Cardiothoracic Surgery Provider, MD Tomeka 09/10/2018 Telephone Cardiothoracic Surgery Julia Miller MA 09/06/2018 Lab Lab Helio Gill Hepatic cyst; MD Bev Fatty liver; Abnormal LFTs; Weight loss 09/06/2018 Office Visit Hepatology Helio Gill Hepatic cyst (Primary Dx); MD Bev Fatty liver; Abnormal LFTs; Weight loss 08/15/2018 Orders Only Cardiothoracic Surgery Gael, Lung nodule CARMELLA Ramirez (Primary Dx) 08/09/2018 Office Visit Cardiothoracic Surgery Jorge L Whitfield Lung nodule ( Primary Dx); 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 Hospital Encounter Radiology Jorge L Whitfield MD 08/03/2018 Telephone Cardiothoracic Surgery Jorge L Whitfield MD 08/02/2018 Orders Only Cardiothoracic Surgery Eriberto Lung judy Betancourt MA (Primary Dx) 07/31/2018 Telephone Cardiothoracic Surgery Julia Miller MA 07/07/2018 Hospital Encounter Radiology Jorge L Whitfield MD 07/07/2018 Hospital Encounter Radiology Jorge L Whitfield Canceled (Jeevan Key MD Order Error) 06/21/2018 Telephone Cardiothoracic Surgery Asia Wei MA 05/28/2018 Telephone Cardiothoracic Surgery Asia Wei MA 05/24/2018 Hospital Encounter Radiology Jorge L Whitfield MD 05/24/2018 Office Visit Cardiothoracic Surgery Jorge L Whitfield Lung judy Key MD (Primary Dx) after 10/17/2017 Family History Medical History Relation Name Comments Prostate cancer Maternal Grandfather Lung cancer Paternal Grandfather Smoker Relation Name Status Comments Maternal Grandfather Paternal Grandfather (Age 70's) Social History Tobacco Use Types Packs/Day Years Used Date Never Smoker Smokeless Tobacco: Never Used Sex Assigned at Date Recorded Not on file Job Start Date Occupation Industry Not on file Not on file Not on file Travel History Travel Start Travel End No recent travel history available. Last Filed Vital Signs Vital Sign Reading Time Taken Blood Pressure 146/80 09/06/2018 9:31 AM CDT Pulse 83 09/06/2018 9:31 AM CDT Temperature 36.6 C (97.9 F) 08/09/2018 11:51 AM ENVIRONMENTAL GEOLOGIST Respiratory Rate 16 08/09/2018 11:51 AM ENVIRONMENTAL GEOLOGIST Oxygen Saturation 100% 09/06/2018 9:31 AM CDT Inhaled Oxygen Concentration - - Weight 85.5 kg (188 lb 9.6 oz) 09/06/2018 9:31 AM CDT Height 162.6 cm (5' 4") 09/06/2018 9:31 AM CDT Body Mass Index 32.37 09/06/2018 9:31 AM CDT Plan of Treatment Date Type Specialty Care Team Description 11/07/2018 Appointment Radiology Jorge L Whitfield MD [address] [facility] [address] [place] [address] [phone] 11/08/2018 Office Visit Cardiothoracic Surgery Jorge L Whitfield MD [address] [facility] [address] [facility] [place] [address] [phone] 11/29/2018 Appointment Radiology Helio Gill MD [address] [facility] [address] [place] [address] [phone] 12/13/2018 Office Visit Hepatology Helio Gill MD [address] [facility] [address] [place] [phone] Health Maintenance Due Date Last Done Comments CERVICAL CANCER SCREENING 02/10/1984 BREAST CANCER SCREENING 2013 COLON CANCER SCREENING 2013 SHINGLES VACCINES (#1) 2013 INFLUENZA VACCINE 01/24/2019 Procedures Procedure Name Priority Date/Time Associated Comments Diagnosis PULMONARY FUNCTION TEST Routine 09/12/2018 ESTEBAN SCREEN W IFA W Routine 09/06/2018 10:08 Hepatic cyst Results for this REFLEX TO TITER AM CDT Fatty liver procedure are in Abnormal LFTs the results Weight loss section. F-ACTIN (SMOOTH MUSCLE) Routine 09/06/2018 10:08 Hepatic cyst Results for this ANTIBODY, IGG AM CDT Fatty liver procedure are in Abnormal LFTs the results Weight loss section. MITOCHONDRIAL ANTIBODY Routine 09/06/2018 10:08 Hepatic cyst Results for this W/REFL TITER AM CDT Fatty liver procedure are in Abnormal LFTs the results Weight loss section. LIPID PANEL Routine 09/06/2018 10:08 Hepatic cyst Results for this AM CDT Fatty liver procedure are in Abnormal LFTs the results Weight loss section. FERRITIN LEVEL Routine 09/06/2018 10:08 Hepatic cyst Results for this AM CDT Fatty liver procedure are in Abnormal LFTs the results Weight loss section. GGT Routine 09/06/2018 10:08 Hepatic cyst Results for this AM CDT Fatty liver procedure are in Abnormal LFTs the results Weight loss section. HEPATITIS ACUTE PANEL Routine 09/06/2018 10:08 Hepatic cyst Results for this AM CDT Fatty liver procedure are in Abnormal LFTs the results Weight loss section. TOTAL IRON BINDING Routine 09/06/2018 10:08 Hepatic cyst Results for this CAPACITY AM CDT Fatty liver procedure are in Abnormal LFTs the results Weight loss section. IMMUNOGLOBULIN G, A, M Routine 09/06/2018 10:08 Hepatic cyst Results for this AM CDT Fatty liver procedure are in Abnormal LFTs the results Weight loss section. PROTHROMBIN TIME WITH Routine 09/06/2018 10:08 Hepatic cyst Results for this INR AM CDT Fatty liver procedure are in Abnormal LFTs the results Weight loss section. COMPREHENSIVE METABOLIC Routine 09/06/2018 10:08 Hepatic cyst Results for this PANEL AM CDT Fatty liver procedure are in Abnormal LFTs the results Weight loss section. CBC WITH PLATELET AND Routine 09/06/2018 10:08 Hepatic cyst Results for this DIFFERENTIAL AM CDT Fatty liver procedure are in Abnormal LFTs the results Weight loss section. CT CHEST WO CONTRAST Routine 08/06/2018 4:01 Lung nodule Results for this PM ENVIRONMENTAL GEOLOGIST procedure are in the results section. CT HEAD EXTERNAL STUDY Routine 05/20/2018 10:54 Results for this PM ENVIRONMENTAL GEOLOGIST procedure are in the results section. CT HEAD EXTERNAL STUDY Routine 05/20/2018 10:35 Results for this PM ENVIRONMENTAL GEOLOGIST procedure are in the results section. after 10/17/2017 Results Pulmonary function tests, complete (09/12/2018) Narrative Performed At ESTEBAN SCREEN W IFA W REFLEX TO TITER (09/06/2018 10:08 AM CDT) ESTEBAN screen NEGATIVE NEGATIVE [facility] [facility] Comment: ESTEBAN IFA is a first line screen for detecting the presence of up to approximately 150 autoantibodies in various autoimmune diseases. A negative ESTEBAN IFA result suggests ESTEBAN-associated autoimmune diseases are not present at this time. Visit Physician FAQs for interpretation of all antibodies in the [place], prevalence, and association with diseases at http://education.Ikanos/ faq/KSX721 Specimen Blood Resulting Agency Comment Performing Organization Information: Site ID: [id number] Name: [facility] Address: [address] [place] [address] Director: Dr. Ephraim Catalan Performing Organization Address [facility] Phone Number TI [facility] [address] [address] MITOCHONDRIAL ANTIBODY W/REFL TITER (09/06/2018 10:08 AM CDT) Mitochondrial Ab NEGATIVE NEGATIVE [facility] Comment: Perfect [facility] This test was developed and its analytical performance characteristics have been determined by [facility]. It has not been cleared or approved by FDA. This assay has been validated pursuant to the CLIA regulations and is used for clinical purposes. Mitochondrial Ab titer TNP titer [facility] Comment: [employer] [facility] Test Not Performed. Screening test Negative or Not Detected. Titer not performed. Resulting Agency Comment Performing Organization Information: Site ID: [id number] Name: [facility], Address: [address] [place] [phone] Director: Hanna Velasco MD,PhD,BREE Performing Organization Address [facility] Phone Number [facility] [address] [phone] [facility] Total iron binding capacity (09/06/2018 10:08 AM CDT) Iron level 61 45 - 160 mcg/dL [facility] Iron binding capacity 293 250 - 450 mcg/dL (calc) [facility] Iron saturation 21 11 - 50 % (calc) [facility] Specimen Blood Resulting Agency Comment Performing Organization Information: Site ID: [id number] Name: [facility] Address: [address] [place] [address] Director: Love Jimenez Performing Organization Address [facility] Phone Number [employer] [address] [address] F-actin (smooth muscle) antibody, IgG (09/06/2018 10:08 AM CDT) F-actin (smooth muscle) <20 U [facility] Ab, IgG Comment: [employer] [facility] Reference Range: < 20 NEGATIVE > OR=20 POSITIVE Antibodies recognizing actin are the main component of smooth muscle antibodies associated with autoimmune liver disease. Actin antibodies are found in approximately 75% of patients with autoimmune hepatitis (AIH) type 1, approximately 65% of patients with autoimmune cholangitis, approximately 30% of patients with primary biliary cirrhosis, and approximately 2% of healthy people. High values are closely correlated with AIH type 1. Specimen Blood Resulting Agency Comment Performing Organization Information: Site ID: [id number] Name: [facility] [facility], Address: [address] [place] [phone] Director: Hanna Velasco MD,PhD,BREE Performing Organization Address City/State/[facility] Phone Number [employer] [address] [place] [phone] [facility] Hepatitis acute panel (09/06/2018 10:08 AM CDT) Hepatitis A IgM NON-REACTIVE NON-REACTIVE [facility] Hepatitis B surface Ag NON-REACTIVE NON-REACTIVE [facility] Hepatitis B core IgM NON-REACTIVE NON-REACTIVE [facility] Hepatitis C Ab NON-REACTIVE NON-REACTIVE [facility] Signal/cutoff 0.01 <1.00 [facility] Comment: PATERSON HCV antibody was non-reactive. There is no laboratory evidence of HCV infection. In most cases, no further action is required. However, if recent HCV exposure is suspected, a test for HCV RNA (test code 86814) is suggested. For additional information please refer to http://education.Pascal Metrics/faq/KVU05i6 (This link is being provided for informational/ educational purposes only.) Specimen Blood Resulting Agency Comment Performing Organization Information: Site ID: [id number] Name: [facility] Address: [address] [place] [phone] Director: Love iJmenez Performing Organization Address City/[facility] Phone Number [employer] [address] [address] Prothrombin time with INR (09/06/2018 10:08 AM CDT) INR 0.9 [facility] Comment: Reference Range 0.9-1.1 Moderate-intensity Warfarin Therapy 2.0-3.0 Higher-intensity Warfarin Therapy 3.0-4.0 Prothrombin time 9.9 9.0 - 11.5 sec [facility] Comment: For more information on this test, go to: http://education.Pascal Metrics/faq/ZEH621 Specimen Blood Resulting Agency Comment Performing Organization Information: Site ID: RGA Name: [facility] Address: [address] [place] [phone] Director: Love Jimenez Performing Organization Address City/State/Zipcode Phone Number [employer] PATERSON [address] [place] [phone] CBC with platelet and differential (09/06/2018 10:08 AM CDT) WBC 9.0 3.8 - 10.8 Thousand/uL [facility] RBC 4.29 3.80 - 5.10 Million/uL [facility]ERSON HGB 12.9 11.7 - 15.5 g/dL [facility] HCT 39.5 35.0 - 45.0 % [facility]ERSON MCV 92.1 80.0 - 100.0 fL [facility] PATERSON MCH 30.1 27.0 - 33.0 pg [facility] PATERSON MCHC 32.7 32.0 - 36.0 g/dL [facility] PATERSON RDW 12.2 11.0 - 15.0 % [facility] Platelet count 223 140 - 400 Thousand/uL [facility] [employer] PATERSON MPV 9.3 7.5 - 12.5 fL [facility]ERSON Neutrophils, absolute 3,960 1,500 - 7,800 cells/uL [facility]ERSON Lymphocytes, absolute 2,169 850 - 3,900 cells/uL [facility]ERSON Monocytes, absolute 540 200 - 950 cells/uL [facility]ERSON Eosinophils, absolute 2,259 (H) 15 - 500 cells/uL [facility] PATERSON Basophils, absolute 72 0 - 200 cells/uL [facility] PATERSON Neutrophils 44 % [facility] Lymphocytes 24.1 % [facility] Monocytes 6.0 % [facility] Eosinophils 25.1 % [facility] PAT[facility] Basophils + RC 0.8 % [facility] Specimen Blood Resulting Agency Comment Performing Organization Information: Site ID: [id number] Name: [facility] Address: [address] [place] [phone] Director: Love Jimenez Performing Organization Address [facility] Phone Number [employer] [place] [phone] Immunoglobulin G, A, M (09/06/2018 10:08 AM CDT) IgA 225 81 - 463 mg/dL [facility] IgG 906 694 - 1,618 mg/dL [facility] IgM 90 48 - 271 mg/dL [facility] Specimen Blood Resulting Agency Comment Performing Organization Information: Site ID: [id number] Name: [facility] Address: [address] [place] [phone] Director: Love Jimenez Performing Organization Address [facility] Phone Number [place] [address] GGT (09/06/2018 10:08 AM CDT) GGT 18 3 - 70 U/L [facility]ERSON Specimen Blood Resulting Agency Comment Performing Organization Information: Site ID: [id number] Name: [facility] Address: [address] [place] [phone] Director: Love Jimenez Performing Organization Address [facility] Number [place] [address] Ferritin level (09/06/2018 10:08 AM CDT) Ferritin level 76 10 - 232 ng/mL [facility] Specimen Blood Resulting Agency Comment Performing Organization Information: Site ID: RGA Name: [facility] Address: [address] [place] [phone] Director: Love Jimenez Performing Organization Address [facility] Phone Number [employer] [address] [address] Lipid panel (09/06/2018 10:08 AM CDT) Cholesterol, total 214 (H) <200 mg/dL [facility] PATERSON HDL cholesterol 73 >50 mg/dL [facility] PATERSON Triglycerides 99 <150 mg/dL [facility] PATERSON LDL cholesterol 120 (H) mg/dL (calc) [facility] calculated Comment: PATERSON Reference range: <100 Desirable range <100 mg/dL for primary prevention; <70 mg/dL for patients with CHD or diabetic patients with > or=2 CHD risk factors. LDL-C is now calculated using the Marcos calculation, which is a validated novel method providing better accuracy than the Friedewald equation in the estimation of LDL-C. Juno QUESADA et al. LIDYA. 2013;310(19): 5273-8679 (http://education.Ikanos/faq/QFS848) Cholesterol/HDL ratio 2.9 <5.0 (calc) [facility] Non-HDL cholesterol 141 (H) <130 mg/dL [facility] Comment: (calc) PATERSON For patients with diabetes plus 1 major ASCVD risk factor, treating to a non-HDL-C goal of <100 mg/dL (LDL-C of <70 mg/dL) is considered a therapeutic option. Specimen Blood Resulting Agency Comment Performing Organization Information: Site ID: RGA Name: [facility] Address: [address] [place] [phone] Director: Love Jimenez Performing Organization Address City/State/Zipcode Phone Number [place] [address] Comprehensive metabolic panel (09/06/2018 10:08 AM CDT) Glucose 91 65 - 99 mg/dL [facility] Comment: PATERSON Fasting reference interval BUN, whole blood 15 7 - 25 mg/dL [facility] Creatinine 0.93 0.50 - 1.05 [facility] Comment: mg/dL PATERSON For patients >49 years of age, the reference limit for Creatinine is approximately 13% higher for people identified as -Malagasy. EGFR Non-Afr. Malagasy 69 > OR=60 [facility] mL/min/1.73m2 PATERSON EGFR 80 > OR=60 [facility] mL/min/1.73m2 PATERSON BUN/creatinine ratio NOT APPLICABLE 6 - 22 (calc) [facility] Sodium 140 135 - 146 mmol/L [facility] Potassium 3.4 (L) 3.5 - 5.3 mmol/L [facility] Chloride 106 98 - 110 mmol/L [facility] CO2 28 20 - 32 mmol/L [facility] PATERSON Calcium 9.2 8.6 - 10.4 mg/dL [facility] Protein 6.4 6.1 - 8.1 g/dL [facility] Albumin, S 3.7 3.6 - 5.1 g/dL [facility] PATERSON Globulin, total 2.7 1.9 - 3.7 g/dL [facility] (calc) PATERSON Albumin/globulin ratio 1.4 1.0 - 2.5 (calc) [facility] PATERSON Total bilirubin 0.3 0.2 - 1.2 mg/dL [facility] Alkaline phosphatase 110 33 - 130 U/L [facility] AST 18 10 - 35 U/L [facility] ALT 21 6 - 29 U/L [facility] Specimen Blood Resulting Agency Comment Performing Organization Information: Site ID: RGA Name: [facility] Address: [address] [place] [phone] Director: Love Jimenez Performing Organization Address City/State/Zipcode Phone Number TI [facility]ERSON [address] [place] [phone] [address] Chest Wo Contrast (08/06/2018 4:01 PM ENVIRONMENTAL GEOLOGIST) Narrative Performed At EXAMINATION: CT CHEST WO CONTRAST HM [facility]IANT CLINICAL HISTORY: R91.1 Solitary pulmonary nodule, lung nodule TECHNIQUE:Axial images of the chest were obtained without intravenous contrast. The lack of intravenous contrast reduces the sensitivity of the exam and evaluating vasculature. CT imaging was performed with iterative reconstruction technique and/or automated exposure control to reduce radiation dose. COMPARISON:Outside radiograph 06/29/2018 FINDINGS: Lungs and airways: 12 x 6 mm right upper lobe nodule with mild surrounding groundglass. On Limited comparison from outside study 05/20/2018, this nodule was not present but there is a similar appearing nodule in the left upper lobe which has since resolved. There is an additional 3 mm nodule in the right upper lobe on image 30 of series 3. Subtle focus of groundglass in the right middle lobe adjacent to the right major fissure on image 61. Pleura: No pleural effusion or pneumothorax. Mediastinum and lymph nodes: No lymphadenopathy. Cardiovascular: Unremarkable Upper abdomen: Prior cholecystectomy. Bones: No suspicious osseous lesions. IMPRESSION: 1.Mixed attenuation right upper lobe nodule with the solid component having an average diameter of 9 mm. This was not present on outside CT from 05/20/2018, but a similar appearing nodule was present in the left upper lobe, which has since resolved. This waxing and waning behavior argues for an inflammatory over neoplastic process. Consider follow-up chest CT in [address] [facility]-[id number] Procedure Note Hm Interface, Radiology Results Incoming - 08/06/2018 4:13 PM ENVIRONMENTAL GEOLOGIST EXAMINATION: CT CHEST WO CONTRAST CLINICAL HISTORY: R91.1 Solitary pulmonary nodule, lung nodule TECHNIQUE: Axial images of the chest were obtained without intravenous contrast. The lack of intravenous contrast reduces the sensitivity of the exam and evaluating vasculature. CT imaging was performed with iterative reconstruction technique and/or automated exposure control to reduce radiation dose. COMPARISON: Outside radiograph 06/29/2018 FINDINGS: Lungs and airways: 12 x 6 mm right upper lobe nodule with mild surrounding groundglass. On Limited comparison from outside study 05/20/2018, this nodule was not present but there is a similar appearing nodule in the left upper lobe which has since resolved. There is an additional 3 mm nodule in the right upper lobe on image 30 of series 3. Subtle focus of groundglass in the right middle lobe adjacent to the right major fissure on image 61. Pleura: No pleural effusion or pneumothorax. Mediastinum and lymph nodes: No lymphadenopathy. Cardiovascular: Unremarkable Upper abdomen: Prior cholecystectomy. Bones: No suspicious osseous lesions. IMPRESSION: 1. Mixed attenuation right upper lobe nodule with the solid component having an average diameter of 9 mm. This was not present on outside CT from 05/20/2018 , but a similar appearing nodule was present in the left upper lobe, which has since resolved. This waxing and waning behavior argues for an inflammatory over neoplastic process. Consider follow-up chest CT in [address] [facility]-[id number] Performing Organization Address City/State/Zipcode Phone Number [facility] [address] [place] [address] CT Head External Study (05/20/2018 10:54 PM ENVIRONMENTAL GEOLOGIST)Only the most recent of2 resultswithin the time period is included. Narrative Performed At This exam was not acquired at a [facility] facility and has not been [facility] interpreted by a [facility] Provider.The exam was imported into our imaging system for comparisons purposes. Performing Organization Address City/State/Zipcode Phone Number [employer] [address] [place] [address] after 10/17/2017 Insurance Payer Benefit Plan / Group Subscriber ID Type Phone Address BCBS BCBS CHOICE PPO/FEDERAL EMPL PPO xxxxxxxxxxxx PPO Advance Directives Patient has advance care planning documents on file. For more information, please contact:Benson Huang[address] [place] [address]
[2018-10-18] MEDS ORDERED: ONDANSETRON 4 MG/2 ML VIAL ONE (21:50)
[2018-10-18] MEDS ORDERED: KETOROLAC 30 MG/ML INJ ONE (21:50)
[2018-10-18] MEDS ORDERED: NA CHLORIDE 0.9% 1,000 ML ONE (21:51)
[2018-10-18 22:09] LABS: Urine Blood NEGATIVE (NEG); Urine Glucose NEGATIVE (NEG); Urine Protein NEGATIVE (NEG)
[2018-10-18 22:24] LABS: Absolute Lymphocytes (CBC) 2.5 K/uL (0.7-4.9); Absolute Monocytes 0.5 K/uL (0.1-1.3); Absolute Neutrophil 2.1 K/uL (1.8-8.0); Basophils % 0.8 % (0-1.3); Eosinophils % 16.9 % (0-4.4); Hematocrit 39.2 % (36.0-45.0); Lymphocytes % 40.8 % (15.3-44.8); MPV 7.6 fL (7.6-11.3); Monocytes % 8.1 % (3.3-12.3); RBC Red Blood Cell Count 4.51 M/uL (3.86-4.86)
[2018-10-18 22:42] LABS: Albumin 3.5 g/dL (3.4-5.0); Bilirubin Total 0.7 mg/dL (0.2-1.0); Potassium 3.5 mmol/L (3.5-5.1)
--- NOTE | 2018-10-18 23:06 | ER ---
Nurse's Notes [facility] Name: Ilda Arndt Age: 53 yrs Sex: Female : 1965 Arrival Date: 10/18/2018 Time: 21:01 Bed 8 Private MD: Ruslan Landin V Diagnosis: Headache;Arnold-Chiari syndrome;Type 2 diabetes mellitus Presentation: 10/18 21:13 Presenting complaint: Patient states: migraine for 3 days with nausea. pt denies ak1 vomiting. pt has taken Motrin, Tylenol, Imitrex, Zofran today. Transition of care: patient was not received from another setting of care. Onset of symptoms was October 15, 2018. Risk Assessment: Do you want to hurt yourself or someone else? Patient reports no desire to harm self or others. Care prior to arrival: None. 21:13 Method Of Arrival: Ambulatory ak 21:13 Acuity: ANDRE 3 ak1 22:14 Initial Sepsis Screen: Does the patient meet any 2 criteria? No. Patient's initial jd3 sepsis screen is negative. Does the patient have a suspected source of infection? No. Patient's initial sepsis screen is negative. Triage Assessment: 21:17 Headache History: The patient has had previous headaches and this one is similar to ak1 previous episodes. General: Appears in no apparent distress. Behavior is calm, cooperative. Neuro: Level of Consciousness is awake, alert, obeys commands, Oriented to person, place, time, situation, Appropriate for age Clinical Audiologist are equal bilaterally Moves all extremities. Gait is steady, Speech is normal. 23:45 Pain: Pain at worst was 10 out of 10 on a pain scale. jd3 10/19 00:00 Pain: Pain began 2-3 days ago. Also complains of nausea, sleeplessness. 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 - Social history:: Smoking status: Patient/guardian denies using tobacco, Patient/guardian denies using alcohol. - Ebola Screening: : No symptoms or risks identified at this time. - Family history:: not pertinent. Screenin:13 Abuse screen: Denies threats or abuse. Nutritional screening: No deficits noted. jd3 Tuberculosis screening: No symptoms or risk factors identified. Fall Risk Ambulatory Aid- None/Bed Rest/Nurse Assist (0 pts). Gait- Normal/Bed Rest/Wheelchair (0 pts) Mental Status- Oriented to own ability (0 pts). Total Arias Fall Scale indicates No Risk (0-24 pts). Assessment: 21:35 General: Appears in no apparent distress. uncomfortable, Behavior is calm, cooperative, jd3 appropriate for age. Pain: Complains of pain in head Quality of pain is described as aching, pressure. Neuro: Level of Consciousness is awake, alert, obeys commands, Oriented to person, place, time, situation, Appropriate for age Reports headache. Cardiovascular: Denies chest pain, Capillary refill < 3 seconds Patient's skin is warm and dry. Respiratory: Airway is patent Respiratory effort is even, unlabored, Respiratory pattern is regular, symmetrical, Denies shortness of breath. GI: Abdomen is round non-distended, Reports nausea, vomiting. : No signs and/or symptoms were reported regarding the genitourinary system. EENT: Reports photophobia. Derm: Skin is intact, Skin is dry, Skin is normal, Skin temperature is warm. Musculoskeletal: Circulation, motion, and sensation intact. Range of motion: intact in all extremities. 22:45 Reassessment: Patient appears in no apparent distress at this time. Patient and/or jd3 family updated on plan of care and expected duration. Pain level reassessed. Patient is alert, oriented x 3, equal unlabored respirations, skin warm/dry/pink. 23:59 Reassessment: Patient appears in no apparent distress at this time. Patient and/or jd3 family updated on plan of care and expected duration. Pain level reassessed. Patient is alert, oriented x 3, equal unlabored respirations, skin warm/dry/pink. Vital Signs: 21:17 BP 143 / 93; Pulse 79; Resp 18; Temp 98.2(O); Pulse Ox 99% on R/A; Weight 83.46 kg (R); ak1 Height 5 ft. 4 in. (162.56 cm); Pain 6/10; 23:59 BP 136 / 80; Pulse 57; Resp 17 S; Pulse Ox 99% on R/A; jd3 21:17 Body Mass Index 31.58 (83.46 kg, 162.56 cm) ak1 ED Course: 21:01 Patient arrived in ED. do 21:01 Ruslan Landin MD is Private Physician. do 21:08 Travis Atwood MD is Attending Physician. kirstin 21:15 Triage completed. ak1 21:17 Arm band placed on Patient placed in an exam room, on a stretcher, on pulse oximetry, ak1 Patient notified of wait time. 21:33 Mick Perry, RN is Primary Nurse. jd3 21:35 Missed attempt(s): 22 gauge in left antecubital area. Bleeding controlled, band aid jd3 applied, catheter tip intact. 21:40 Missed attempt(s): 22 gauge in left antecubital area. Bleeding controlled, band aid jd3 applied, catheter tip intact. 22:13 Patient has correct armband on for positive identification. Bed in low position. Call jd3 light in reach. Side rails up X 1. 22:30 Missed attempt(s): 22 gauge in left hand. fc 22:35 Inserted 18 gauge 10 cm midline to left upper arm basilic vein on first attempt. Line fc with good blood return and flushes well. 23:05 Ruslan Landin MD is Referral Physician. kirstin 23:06 Momo Groves MD is Referral Physician. kirstin 10/19 00:00 No provider procedures requiring assistance completed. IV discontinued, intact, jd3 bleeding controlled, No redness/swelling at site. Pressure dressing applied. Administered Medications: 10/18 22:43 Drug: NS 0.9% 1000 ml Route: IV; Rate: 1 bolus; Site: left upper arm; jd3 23:40 Follow up: Response: No adverse reaction; IV Status: Completed infusion; IV Intake: jd3 1000ml 22:43 Drug: TORadol 30 mg Route: IVP; Site: left upper arm; jd3 23:40 Follow up: Response: No adverse reaction jd3 22:43 Drug: Zofran 4 mg Route: IVP; Site: left upper arm; jd3 23:40 Follow up: Response: No adverse reaction jd3 23:55 Drug: Zofran 4 mg Route: IVP; Site: left upper arm; jd3 10/19 00:03 Follow up: Response: Medication administered at discharge. jd3 00:01 Not Given (Patient Refused): morphine 4 mg IVP once jd3 Intake: 10/18 23:40 IV: 1000ml; Total: 1000ml. jd3 Outcome: 23:05 Discharge ordered by . kirstin 10/19 00:04 Discharged to home ambulatory. jd3 Condition: stable Discharge instructions given to patient, Instructed on discharge instructions, follow up and referral plans. Demonstrated understanding of instructions, follow-up care, medications, Prescriptions given X 2. 00:05 Patient left the ED. jd3 Signatures: Travis Atwood MD MD cha Chretien, Felicia, RN RN Zayda Wallace RN RN Franchesca Coates Jonathon RN RN jd3 Corrections: (The following items were deleted from the chart) 10/18 23:59 23:36 Reassessment: Patient appears in no apparent distress at this time. Patient jd3 and/or family updated on plan of care and expected duration. Pain level reassessed. Patient is alert, oriented x 3, equal unlabored respirations, skin warm/dry/pink. Patient states feeling better. jd3 10/19 00:02 00:01 Zofran 4 mg IVP in left upper arm jd3 jd3
--- NOTE | 2018-10-18 23:06 | EDPHYS ---
Physician Documentation [facility] Name: Ilda Arndt Age: 53 yrs Sex: Female : 1965 Arrival Date: 10/18/2018 Time: 21:01 Bed 8 Private MD: Ruslan Landin V ED Physician Travis Atwood HPI: 10/18 21:32 This 53 yrs old Female presents to ER via Ambulatory with complaints of kirstin Headache. 21:32 The patient complains of pain to the forehead, left occipital area and right occipital kirstin area. The patient describes the headache as aching, constant. Onset: The symptoms/episode began/occurred 2 day(s) ago. Associated signs and symptoms: The patient has no apparent associated signs or symptoms. Severity of symptoms: At its worst the pain was mild, moderate, in the emergency department the pain is unchanged. Headache History: The patient has had previous headaches and this one is similar to previous episodes. The symptoms are alleviated by Darkened room, quiet, remaining still, the symptoms are aggravated by lights, movement, noise. The patient has experienced similar episodes in the past, multiple times. 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 - Social history:: Smoking status: Patient/guardian denies using tobacco, Patient/guardian denies using alcohol. - Ebola Screening: : No symptoms or risks identified at this time. - Family history:: not pertinent. ROS: 21:32 Constitutional: Negative for fever, chills, and weight loss, Eyes: Negative for injury, kirstin pain, redness, and discharge, ENT: Negative for injury, pain, and discharge, Neck: Negative for injury, pain, and swelling, Cardiovascular: Negative for chest pain, palpitations, and edema, Respiratory: Negative for shortness of breath, cough, wheezing, and pleuritic chest pain, Abdomen/GI: Negative for abdominal pain, nausea, vomiting, diarrhea, and constipation, Back: Negative for injury and pain, : Negative for injury, bleeding, discharge, and swelling, MS/Extremity: Negative for injury and deformity, Skin: Negative for injury, rash, and discoloration, Psych: Negative for depression, anxiety, suicide ideation, homicidal ideation, and hallucinations, Allergy/Immunology: Negative for hives, rash, and allergies, Endocrine: Negative for neck swelling, polydipsia, polyuria, polyphagia, and marked weight changes, Hematologic/Lymphatic: Negative for swollen nodes, abnormal bleeding, and unusual bruising. 21:32 Neuro: Positive for headache. Exam: 21:32 Constitutional: This is a well developed, well nourished patient who is awake, alert, kirstin and in no acute distress. Head/Face: Normocephalic, atraumatic. Eyes: Pupils equal round and reactive to light, extra-ocular motions intact. Lids and lashes normal. Conjunctiva and sclera are non-icteric and not injected. Cornea within normal limits. Periorbital areas with no swelling, redness, or edema. ENT: Nares patent. No nasal discharge, no septal abnormalities noted. Tympanic membranes are normal and external auditory canals are clear. Oropharynx with no redness, swelling, or masses, exudates, or evidence of obstruction, uvula midline. Mucous membranes moist. Neck: Trachea midline, no thyromegaly or masses palpated, and no cervical lymphadenopathy. Supple, full range of motion without nuchal rigidity, or vertebral point tenderness. No Meningismus. Chest/axilla: Normal chest wall appearance and motion. Nontender with no deformity. No lesions are appreciated. Cardiovascular: Regular rate and rhythm with a normal S1 and S2. No gallops, murmurs, or rubs. Normal PMI, no JVD. No pulse deficits. Respiratory: Lungs have equal breath sounds bilaterally, clear to auscultation and percussion. No rales, rhonchi or wheezes noted. No increased work of breathing, no retractions or nasal flaring. Abdomen/GI: Soft, non-tender, with normal bowel sounds. No distension or tympany. No guarding or rebound. No evidence of tenderness throughout. Back: No spinal tenderness. No costovertebral tenderness. Full range of motion. Skin: Warm, dry with normal turgor. Normal color with no rashes, no lesions, and no evidence of cellulitis. MS/ Extremity: Pulses equal, no cyanosis. Neurovascular intact. Full, normal range of motion. Neuro: Awake and alert, GCS 15, oriented to person, place, time, and situation. Cranial nerves II-XII grossly intact. Motor strength 5/5 in all extremities. Sensory grossly intact. Cerebellar exam normal. Normal gait. Psych: Awake, alert, with orientation to person, place and time. Behavior, mood, and affect are within normal limits. 21:32 Neck: ROM/movement: is normal, no acute changes, Meningeal signs: are not present, Kernig's sign is negative, Brudzinski's sign is negative. Vital Signs: 21:17 BP 143 / 93; Pulse 79; Resp 18; Temp 98.2(O); Pulse Ox 99% on R/A; Weight 83.46 kg (R); ak1 Height 5 ft. 4 in. (162.56 cm); Pain 6/10; 23:59 BP 136 / 80; Pulse 57; Resp 17 S; Pulse Ox 99% on R/A; jd3 21:17 Body Mass Index 31.58 (83.46 kg, 162.56 cm) ak1 MDM: 21:08 Patient medically screened. [facility] 21:32 Data reviewed: vital signs, nurses notes, lab test result(s). [facility] 10/18 21:31 Order name: CBC with Diff; Complete Time: 23:05 [facility] 10/18 21:31 Order name: Comprehensive Metabolic Panel; Complete Time: 23:05 [facility] 10/18 21: Order name: Urine Culture [facility] 10/18 22:02 Order name: Urine Dipstick--Ancillary (enter results); Complete Time: 23:05 [facility] 10/18 21:31 Order name: Urine Dipstick-Ancillary (obtain specimen); Complete Time: 22:00 [facility] Administered Medications: 22:43 Drug: NS 0.9% 1000 ml Route: IV; Rate: 1 bolus; Site: left upper arm; jd3 23:40 Follow up: Response: No adverse reaction; IV Status: Completed infusion; IV Intake: jd3 1000ml 22:43 Drug: TORadol 30 mg Route: IVP; Site: left upper arm; jd3 23:40 Follow up: Response: No adverse reaction jd3 22:43 Drug: Zofran 4 mg Route: IVP; Site: left upper arm; jd3 23:40 Follow up: Response: No adverse reaction jd3 23:55 Drug: Zofran 4 mg Route: IVP; Site: left upper arm; jd3 10/19 00:03 Follow up: Response: Medication administered at discharge. jd3 00:01 Not Given (Patient Refused): morphine 4 mg IVP once jd3 Disposition: 10/18/18 23:05 Discharged to Home. Impression: Headache, Arnold-Chiari syndrome, Type 2 diabetes mellitus. - Condition is Stable. - Discharge Instructions: Type 2 Diabetes Mellitus, Diagnosis, Adult, General Headache Without Cause, General Headache Without Cause, [id number], Type 2 Diabetes Mellitus, Diagnosis, Adult, [id number]. - Prescriptions for Zofran 4 mg Oral Tablet - take 1 tablet by ORAL route every 12 hours As needed; 20 tablet. Ibuprofen 600 mg Oral Tablet - take 1 tablet by ORAL route every 8 hours As needed take with food; 21 tablet. - Medication Reconciliation Form, Thank You Letter, Antibiotic Education, Prescription Opioid Use form. - Follow up: Ruslan Landin; When: 2 - 3 days; Reason: Recheck today's complaints, Continuance of care, Re-evaluation by your physician. Follow up: Momo Groves MD; When: 2 - 3 days; Reason: Recheck today's complaints, Re-evaluation by your physician. - Problem is new. - Symptoms have improved. Signatures: Dispatcher [employer] Travis Torres MD MD cha Krenek, Amber, RN RN ak1 Mick Perry RN RN jd3 Corrections: (The following items were deleted from the chart) 10/18 23:06 23:05 10/18/2018 23:05 Discharged to Home. Impression: Headache; Arnold-Chiari kirstin syndrome; Type 2 diabetes mellitus. Condition is Stable. Discharge Instructions: Type 2 Diabetes Mellitus, Diagnosis, Adult, Type 2 Diabetes Mellitus, Diagnosis, Adult, [id number], General Headache Without Cause, General Headache Without Cause, [id number]. Prescriptions for Zofran 4 mg Oral Tablet - take 1 tablet by ORAL route every 12 hours As needed; 20 tablet, Ibuprofen 600 mg Oral Tablet - take 1 tablet by ORAL route every 8 hours As needed take with food; 21 tablet. and Forms are Medication Reconciliation Form, Thank You Letter, Antibiotic Education, Prescription Opioid Use. Follow up: Ruslan Landin; When: 2 - 3 days; Reason: Recheck today's complaints, Continuance of care, Re-evaluation by your physician. Problem is new. Symptoms have improved. [facility] 10/19 00:05 10/18 23:06 10/18/2018 23:05 Discharged to Home. Impression: Headache; Arnold-Chiari jd3 syndrome; Type 2 diabetes mellitus. Condition is Stable. Discharge Instructions: Type 2 Diabetes Mellitus, Diagnosis, Adult, Type 2 Diabetes Mellitus, Diagnosis, Adult, [id number], General Headache Without Cause, General Headache Without Cause, Juon-ak-Wama. Prescriptions for Zofran 4 mg Oral Tablet - take 1 tablet by ORAL route every 12 hours As needed; 20 tablet, Ibuprofen 600 mg Oral Tablet - take 1 tablet by ORAL route every 8 hours As needed take with food; 21 tablet. and Forms are Medication Reconciliation Form, Thank You Letter, Antibiotic Education, Prescription Opioid Use. Follow up: Ruslan Landin; When: 2 - 3 days; Reason: Recheck today's complaints, Continuance of care, Re-evaluation by your physician. Follow up: Momo Groves; When: 2 - 3 days; Reason: Recheck today's complaints, Re-evaluation by your physician. Problem is new. Symptoms have improved. kirstin
[2018-10-19] MEDS ORDERED: ONDANSETRON 4 MG/2 ML VIAL ONE
== END 2018-10-19 00:05 | disposition home or self-care (01) ==
LOC: ER 20:51
DX: Q07.00 Arnold-Chiari syndrome without spina bifida or hydrocephalus (principal); E11.9 Type 2 diabetes mellitus without complications; Z88.6 Allergy status to analgesic agent; Z88.1 Allergy status to other antibiotic agents; Z91.040 Latex allergy status
CPT/HCPCS: 36415; 80053; 81003; 85025; 87086; 87088; 96361; 96374; 96375; 99283; J2405; J7030

== ENCOUNTER 2019-02-03 18:39 | Emergency (ER) | payer BC ==
--- OUTSIDE RECORDS SUMMARY | 2019-02-03 18:42 | XMS REPORT | Clinical Summary ---
:1965 Author Organization [facility] Address [address] [place] [address] Care Team Providers Name Role Phone Ruslan [...] Encounters Date Type Specialty Care Team Description 11/16/2018 Telephone Cardiothoracic Surgery Meisenbach, Lung nodule Faye Kaur NP (Primary Dx) 11/14/2018 [facility] Medical Cardiothoracic Surgery Jorge L Whitfield Lung nodule Review MD Yesi (Primary Dx) 11/08/2018 Office Visit Cardiothoracic Surgery Jorge L Whitfield Lung judy Key MD (Primary Dx) 11/07/2018 Hospital Encounter Radiology Jorge L Whitfield Lung judy Key MD 11/07/2018 Telephone Cardiothoracic Surgery Nohemi Kidd MA 09/24/2018 Orders Only Cardiothoracic Surgery Tomeka Deal MD 09/10/2018 Telephone Cardiothoracic Surgery Julia Miller MA [...] 08/06/2018 Hospital Encounter Radiology Jorge L Whitfield Lung judy Key MD 08/03/2018 Telephone Cardiothoracic Surgery Jorge L Whitfield MD 08/02/2018 Orders Only Cardiothoracic Surgery Eriberto Lung nodule CARMELLA Betancourt (Primary Dx) 07/31/2018 Telephone Cardiothoracic Surgery Julia [...] Lung judy Key MD (Primary Dx) after 02/02/2018 Family History Medical History Relation Name Comments [...] Vital Sign Reading Time Taken Blood Pressure 138/63 11/08/2018 1:08 PM CDT Pulse 79 11/08/2018 1:08 PM CDT Temperature 36.6 C (97.9 F) 11/08/2018 1:08 PM CDT Respiratory Rate 17 11/08/2018 1:08 PM CDT Oxygen Saturation 98% 11/08/2018 1:08 PM CDT Inhaled Oxygen Concentration - - Weight 88.5 kg (195 lb) 11/08/2018 1:08 PM CDT Height 162.6 cm (5' 4") 11/08/2018 1:08 PM CDT Body Mass Index 33.47 11/08/2018 1:08 PM CDT Plan of Treatment Date Type Specialty Care Team Description 11/08/2019 Appointment Radiology Jorge L Whitfield MD [address] [phone] Health Maintenance Due Date Last Done Comments BREAST CANCER SCREENING 2013 COLONOSCOPY SCREENING 2013 SHINGLES VACCINES (#1) 2013 INFLUENZA VACCINE 01/24/2019 Procedures Procedure Name Priority Date/Time Associated Comments Diagnosis CT CHEST WO CONTRAST Routine 11/07/2018 2:27 Lung nodule Results for this PM CDT procedure are in the results section. PULMONARY FUNCTION TEST Routine 09/12/2018 ESTEBAN SCREEN [...] 4:01 Lung nodule Results for this PM [employer] procedure are in the results section. CT HEAD EXTERNAL STUDY Routine 05/20/2018 10:54 Results for this PM [employer] procedure are in the results section. CT HEAD EXTERNAL STUDY Routine 05/20/2018 10:35 Results for this PM [employer] procedure are in the results section. after 02/02/[address] Chest Wo Contrast (11/07/2018 2:27 PM CDT)Only the most recent of2 resultswithin the time period is included. Specimen Narrative Performed At EXAMINATION: CT CHEST WO CONTRAST [facility] CLINICAL HISTORY: R91.1 Solitary pulmonary nodule, lung nodule TECHNIQUE:Axial images of the chest were obtained without intravenous contrast. The lack of intravenous contrast reduces the sensitivity of the exam and evaluating vasculature. CT imaging was performed with iterative reconstruction technique and/or automated exposure control to reduce radiation dose. COMPARISON:CT chest dated 08/06/2018. FINDINGS: CHEST: 1. Aorta: Thoracic aorta is nonaneurysmal. Ascending thoracic aorta measures up to 35 mm. The pulmonary trunk is normal in caliber. 2. Heart: The heart is normal in size. 3. Pericardial Fluid: No pericardial effusion. 4. Mediastinum: No significant adenopathy is seen in the base of the neck. No significant adenopathy is seen in the axilla. No significant mediastinal or hilar lymph nodes by size criteria. Limited assessment of the soren the absence of contrast. The thoracic esophagus is grossly unremarkable. 5. Airways: Central airways are patent. 6. Lungs: There is a 3 mm nodule in the right upper lobe on series 2, image 27 which is unchanged. There is a small focal region of groundglass in the right middle lobe on series 2, image 45 which is new since previous examination. There is a small solid component. Overall measures up to 6 x 3 mm. The right middle lobe groundglass has resolved. The previously identified right upper lobe nodule has resolved since prior. 7. Pleural Fluid: No pleural effusions. 8. Bones: Osseous structures intact. No destructive bony lesions. 9. Upper Abdomen: Limited assessment of the upper abdomen demonstrates no visible free air or free fluid. Prior cholecystectomy. Moderate amount of food contents are noted in the stomach. There is a small hypodensity in segment 2 of the liver on series 2, image 92 which was not definitively seen on prior imaging. This measures up to 7 mm. There is a vague subcapsular hypodensity in segment 8 on series 2, image 77 measuring up to 10 mm. A moderate stool burden is seen within the colon. 10. Other Findings: None IMPRESSION: Interval resolution of the previously identified mixed solid and groundglass nodule in the right upper lobe since previous examination. There is a new mixed solid and groundglass nodule in the right upper lobe which has appeared since previous examination. This waxing and waning pattern favors an inflammatory process. Follow-up chest CT in 3 months to evaluate for resolution of this nodule is recommended. Small hypodensities in the liver as detailed above, incompletely assessed but probably benign. Further assessment with targeted ultrasound is recommended. Additional findings and details as above. [id number] Procedure Note Hm Interface, Radiology Results Incoming - 11/07/2018 3:34 PM CDT EXAMINATION: CT CHEST WO CONTRAST CLINICAL HISTORY: R91.1 Solitary pulmonary nodule, lung nodule TECHNIQUE: Axial images of the chest were obtained without intravenous contrast. The lack of intravenous contrast reduces the sensitivity of the exam and evaluating vasculature. CT imaging was performed with iterative reconstruction technique and/or automated exposure control to reduce radiation dose. COMPARISON: CT chest dated 08/06/2018. FINDINGS: CHEST: 1. Aorta: Thoracic aorta is nonaneurysmal. Ascending thoracic aorta measures up to 35 mm. The pulmonary trunk is normal in caliber. 2. Heart: The heart is normal in size. 3. Pericardial Fluid: No pericardial effusion. 4. Mediastinum: No significant adenopathy is seen in the base of the neck. No significant adenopathy is seen in the axilla. No significant mediastinal or hilar lymph nodes by size criteria. Limited assessment of the soren the absence of contrast. The thoracic esophagus is grossly unremarkable. 5. Airways: Central airways are patent. 6. Lungs: There is a 3 mm nodule in the right upper lobe on series 2, image 27 which is unchanged. There is a small focal region of groundglass in the right middle lobe on series 2, image 45 which is new since previous examination. There is a small solid component. Overall measures up to 6 x 3 mm. The right middle lobe groundglass has resolved. The previously identified right upper lobe nodule has resolved since prior. 7. Pleural Fluid: No pleural effusions. 8. Bones: Osseous structures intact. No destructive bony lesions. 9. Upper Abdomen: Limited assessment of the upper abdomen demonstrates no visible free air or free fluid. Prior cholecystectomy. Moderate amount of food contents are noted in the stomach. There is a small hypodensity in segment 2 of the liver on series 2, image 92 which was not definitively seen on prior imaging. This measures up to 7 mm. There is a vague subcapsular hypodensity in segment 8 on series 2, image 77 measuring up to 10 mm. A moderate stool burden is seen within the colon. 10. Other Findings: None IMPRESSION: Interval resolution of the previously identified mixed solid and groundglass nodule in the right upper lobe since previous examination. There is a new mixed solid and groundglass nodule in the right upper lobe which has appeared since previous examination. This waxing and waning pattern favors an inflammatory process. Follow-up chest CT in 3 months to evaluate for resolution of this nodule is recommended. Small hypodensities in the liver as detailed above, incompletely assessed but probably benign. Further assessment with targeted ultrasound is recommended. Additional findings and details as above. [id number] Performing Organization Address City/[facility]/Zipcode Phone Number [facility] [address] [place] [address] Pulmonary function tests, complete (09/12/2018) Narrative Performed At ESTEBAN SCREEN W IFA W REFLEX TO TITER (09/06/2018 10:08 AM CDT) Pathologist [facility] ESTEBAN screen NEGATIVE NEGATIVE [facility] Comment: The [employer] ESTEBAN IFA is a first line screen for detecting the II presence of up to approximately 150 autoantibodies in various autoimmune diseases. A negative ESTEBAN IFA result suggests ESTEBAN-associated autoimmune diseases are not present at this time. Visit Physician FAQs for interpretation of all antibodies in the [place], prevalence, and association with diseases at http://DNage.[employer] faq/KTR638 Specimen Blood Resulting Agency Comment Performing Organization Information: Site ID: [id number] Name: [facility] Lab Address: [address] [place] [phone] Director: Dr. Ephraim Catalan Performing Organization Address [facility] Phone Number [facility] [address] [place] [phone] MITOCHONDRIAL ANTIBODY W/REFL TITER (09/06/2018 10:08 AM CDT) Pathologist [facility] Mitochondrial Ab NEGATIVE NEGATIVE [facility] Comment: [employer] [facility] This test was developed and its analytical performance characteristics have been determined by [facility]. It has not been cleared or approved by FDA. This assay has been validated pursuant to the CLIA regulations and is used for clinical purposes. Mitochondrial Ab TNP titer [facility] titer Comment: [employer] [facility] Test Not Performed. Screening test Negative or Not Detected. Titer not performed. Specimen Resulting Agency Comment Performing Organization Information: Site ID: [id number] Name: [employer] [facility], Address: [address] [place] [address], [place] [address] Director: Hanna Velasco MD,PhD,BREE Performing Organization Address [facility]/Zipcode Phone Number [employer] [address] [place], [place] [phone] [facility] Total iron binding capacity (09/06/2018 10:08 AM CDT) Pathologist [facility] Iron level 61 45 - 160 mcg/dL [facility] [place] Iron binding capacity 293 250 - 450 mcg/dL [facility] [employer] (calc) [place] Iron saturation 21 11 - 50 % (calc) [facility] [place] Specimen Blood Resulting Agency Comment Performing Organization Information: Site ID: [id number] Name: [facility] Address: [address] [place] [phone] Director: Love Jimenez Performing Organization Address City/[facility]/Zipcode Phone [place] [address] F-actin (smooth muscle) antibody, IgG (09/06/2018 10:08 AM CDT) Pathologist [facility] F-actin (smooth <20 U [facility] muscle) Ab, IgG Comment: DIAGNOSTICS/MESERET Reference Range: [facility] < 20 NEGATIVE > OR=20 POSITIVE Antibodies [...] Performing Organization Information: Site ID: [id number] Name: [facility] [facility], Address: [address] [place] [phone] Director: Hanna Velasco MD,PhD,BREE Performing Organization Address City/[facility]/Zipcode Phone Number [employer]/IID [address] [place], [place] [phone] [facility] Hepatitis acute panel (09/06/2018 10:08 AM CDT) Pathologist [facility] Hepatitis A IgM NON-REACTIVE NON-REACTIVE [facility] [place] Hepatitis B NON-REACTIVE NON-REACTIVE [facility] surface Ag [place] Hepatitis B core NON-REACTIVE NON-REACTIVE [facility] IgM [place] Hepatitis C Ab NON-REACTIVE NON-REACTIVE [employer] [place] Signal/cutoff 0.01 <1.00 [facility] Comment: [place] HCV antibody was non-reactive. There is no laboratory evidence of HCV infection. In most cases, no further action is required. However, if recent HCV exposure is suspected, a test for HCV RNA (test code 99052) is suggested. For additional information please refer to http://education.[employer]/faq/TUL37i9 (This link is being provided for informational/ educational purposes only.) Specimen Blood Resulting Agency Comment Performing Organization Information: Site ID: [facility] [place]) Name: [facility] Address: [address] [place] [phone] Director: Love Jimenez Performing Organization Address City/[facility] Cent[facility]ode Phone [place] [address] Prothrombin time with INR (09/06/2018 10:08 AM CDT) INR 0.9 [facility] Comment: [place] Reference Range 0.9-1.1 Moderate-intensity Warfarin Therapy 2.0-3.0 Higher-intensity Warfarin Therapy 3.0-4.0 Prothrombin time 9.9 9.0 - 11.5 [facility] Comment: [facility] For more information on this test, go to: http://DNage.[employer]/faq/CXV150 Specimen Blood Resulting Agency Comment Performing Organization Information: Site ID: [facility] ([place] [place]) Name: [facility] Address: [address] [place] [phone] Director: Love Jimenez Performing Organization Address [facility] Centercode Phone [place] [address] CBC with platelet and differential (09/06/2018 10:08 AM CDT) WBC 9.0 3.8 - 10.8 [facility] Thousand/uL [place] RBC 4.29 3.80 - 5.10 [facility] Million/uL [place] HGB 12.9 11.7 - 15.5 [facility] g/dL [place] HCT 39.5 35.0 - 45.0 % [facility] [place] MCV 92.1 80.0 - 100.0 [facility] fL [place] MCH 30.1 27.0 - 33.0 pg [facility] [place] MCHC 32.7 32.0 - 36.0 [facility] g/dL [place] RDW 12.2 11.0 - 15.0 % [employer] [place] Platelet count 223 140 - 400 [facility] Thousand/uL [place] MPV 9.3 7.5 - 12.5 fL [facility] [place] Neutrophils, absolute 3,960 1,500 - 7,800 [facility] cells/uL [place] Lymphocytes, absolute 2,169 850 - 3,900 [facility] cells/uL [place] Monocytes, absolute 540 200 - 950 [facility] cells/uL [place] Eosinophils, absolute 2,259 (H) 15 - 500 [facility] cells/uL [place] Basophils, absolute 72 0 - 200 [facility] cells/uL [place] Neutrophils 44 % [facility] [place] Lymphocytes 24.1 % [facility] [place] Monocytes 6.0 % [facility] [place] Eosinophils 25.1 % [employer] [place] Basophils + RC 0.8 % [employer] [place] Specimen Blood Resulting Agency Comment Performing Organization Information: Site ID: [facility] ([place] [place]) Name: [facility] Address: [address] [place] [phone] Director: Love Jimenez Performing Organization Address City/[facility] Centercowa Phone [place] [address] Immunoglobulin G, A, M (09/06/2018 10:08 AM CDT) IgA 225 81 - 463 mg/dL [facility] IgG 906 694 - 1,618 mg/dL [employer] [place] IgM 90 48 - 271 mg/dL [employer] [place] Specimen Blood Resulting Agency Comment Performing Organization Information: Site ID: [id number] Name: [facility] Address: [address] [place] [phone] Director: Love Jimenez Performing Organization Address City/[facility] Centercode Phone [place] [address] GGT (09/06/2018 10:08 AM CDT) GGT 18 3 - 70 U/L [employer] [place] Specimen Blood Resulting Agency Comment Performing Organization Information: Site ID: [facility] ([place] [place]) Name: [facility] Address: [address] [place] [phone] Director: Love Jimenez Performing Organization Address City/[facility] Phone Number [employer] [facility] [address] [place] [address] Ferritin level (09/06/2018 10:08 AM CDT) Ferritin level 76 10 - 232 ng/mL [facility] Specimen Blood Resulting Agency Comment Performing Organization Information: Site ID: [id number] Name: [facility] Lab Address: [address] [place] [phone] Director: Love Jimenez Performing Organization Address [facility] Phone Number [facility] [place] [address] Lipid panel (09/06/2018 10:08 AM CDT) Cholesterol, total 214 (H) <200 mg/dL [facility] HDL cholesterol 73 >50 mg/dL [facility] Triglycerides 99 <150 mg/dL [facility] LDL cholesterol 120 (H) mg/dL (calc) [facility] [place] [place] calculated Comment: [place] Reference range: <100 Desirable range <100 mg/dL for primary prevention; <70 mg/dL for patients with CHD or diabetic patients with > or=2 CHD risk factors. LDL-C is now calculated using the Juno-Juhi calculation, which is a validated novel method providing better accuracy than the Friedewald equation in the estimation of LDL-C. Juno SS et al. LIDYA. 2013;310(19): 0982-5571 (http://education.[employer].Private.Me/faq/NDG554) Cholesterol/HDL 2.9 <5.0 (calc) [facility] [place] [facility] Non-HDL cholesterol 141 (H) <130 mg/dL [facility] The [facility] Comment: (calc) [place] For patients with diabetes plus 1 major ASCVD risk factor, treating to a non-HDL-C goal of <100 mg/dL (LDL-C of <70 mg/dL) is considered a therapeutic option. Specimen Blood Resulting Agency Comment Performing Organization Information: Site ID: [id number] Name: [facility] Address: [address] [place] [phone] Director: Love Jimenez Performing Organization Address [facility] Centercode Phone Number [facility] [address] [address] Comprehensive metabolic panel (09/06/2018 10:08 AM CDT) Glucose 91 65 - 99 [facility] Comment: mg/dL [place] Fasting reference interval BUN, whole blood 15 7 - 25 mg/dL [facility] [place] Creatinine 0.93 0.50 - 1.05 [facility] Comment: mg/dL [place] For patients >49 years of age, the reference limit for Creatinine is approximately 13% higher for people identified as -[place]. EGFR Non-Afr. 69 > OR=60 [facility] [place] mL/min/1.73m [place] 2 EGFR 80 > OR=60 [facility] [place] mL/min/1.73m [place] 2 BUN/creatinine NOT APPLICABLE 6 - 22 [facility] ratio (calc) [place] Sodium 140 135 - 146 [facility] mmol/L [place] Potassium 3.4 (L) 3.5 - 5.3 [facility] mmol/L [place] Chloride 106 98 - 110 [facility] mmol/L [place] CO2 28 20 - 32 [facility] mmol/L [place] Calcium 9.2 8.6 - 10.4 [facility] mg/dL [place] Protein 6.4 6.1 - 8.1 [facility] g/dL [place] Albumin, S 3.7 3.6 - 5.1 [facility] g/dL [place] Globulin, total 2.7 1.9 - 3.7 [facility] g/dL (calc) [place] Albumin/globulin 1.4 1.0 - 2.5 [facility] ratio (calc) [place] Total bilirubin 0.3 0.2 - 1.2 [facility] mg/dL [place] Alkaline 110 33 - 130 U/L [facility] phosphatase [place] AST 18 10 - 35 U/L [facility] [place] ALT 21 6 - 29 U/L [facility] [place] Specimen Blood Resulting Agency Comment Performing Organization Information: Site ID: [id number] Name: [facility] Address: [address] [place] [phone] Director: Love Jimenez Performing Organization Address City/State/Zipcode Phone Number [employer] [address] [address] [address] Head External Study (05/20/2018 10:54 PM [employer])Only the most recent of2 resultswithin the time period is included. Specimen Narrative Performed At This exam was not acquired at a [facility] facility and has not been [facility] interpreted by a [facility] Provider.The exam was imported into our imaging system for comparisons purposes. Performing Organization Address City/State/Zipcode Phone Number [facility] [address] [place] [address] after 02/02/2018 Advance Directives Patient has advance care planning documents on file. For more information, please contact:Benson Huang[address] [place] [address]
[2019-02-03] MEDS ORDERED: TETANUS & DIPHTHERIA TOX,ADULT 0.5 ML VIAL ONE (19:13)
[2019-02-03] MEDS ORDERED: BUPIVACAINE 0.5% PF 10 ML VIAL ONE (19:13)
--- NOTE | 2019-02-03 20:40 | RAD REPORT ---
EXAM DESCRIPTION: RAD - Hand Right 3 View - 02/03/2019 7:45 pm CLINICAL HISTORY: Hand pain, trauma to the fourth and fifth digits COMPARISON: None. FINDINGS: No fracture is identified. There is no dislocation or periosteal reaction noted. Mild IP joint degenerative changes are present. Mild soft tissue swelling of the fourth and fifth digits. No foreign body. IMPRESSION: Mild degenerative change as detailed. No fracture identified.
--- NOTE | 2019-02-03 21:05 | ER ---
Nurse's Notes [facility] Name: Ilda Arndt Age: 53 yrs Sex: Female : 1965 Arrival Date: 02/03/2019 Time: 18:42 Bed 23 Private MD: Diagnosis: Finger Laceration;Finger Contusion Presentation: 02/03 18:50 Presenting complaint: Patient states: I closed my right 4th and 5th fingers in the car la1 door. Transition of care: patient was not received from another setting of care. Onset of symptoms was February 03, 2019. Risk Assessment: Do you want to hurt yourself or someone else? Patient reports no desire to harm self or others. Initial Sepsis Screen: Does the patient meet any 2 criteria? No. Patient's initial sepsis screen is negative. Does the patient have a suspected source of infection? No. Patient's initial sepsis screen is negative. Care prior to arrival: None. 18:50 Method Of Arrival: Ambulatory la1 18:50 Acuity: ANDRE 4 la1 Triage Assessment: 19:01 General: Appears in no apparent distress. comfortable, Behavior is calm, cooperative, cc3 appropriate for age. Pain: Complains of pain in right 4th and 5th fingers. Musculoskeletal: Circulation, motion, and sensation intact. Range of motion: intact in all extremities. Injury Description: Bruise sustained to right 4th and 5th fingers is purple, was sustained 4-6 hours ago. Historical: - Allergies: 18:51 Bactrim; la1 18:51 Biaxin; la1 18:51 Codeine; la1 18:51 Latex, Natural Rubber; la1 - Home Meds: 19:03 Glucophage Oral [Active]; imatrex [Active]; L-Methylfolate 7.5 mg Oral tab daily cc3 [Active]; vitamiin d daily [Active]; - PMHx: 18:51 Arthritis; chiari malformation; Depression; Diabetes - NIDDM; ehler-danlos syndrome; la1 MRSA; Upper Extremity Thrombus; - Immunization history:: Adult Immunizations up to date. - Social history:: Smoking status: Patient/guardian denies using tobacco. - Ebola Screening: : No symptoms or risks identified at this time. Screenin:53 Abuse screen: Denies threats or abuse. Denies injuries from another. Nutritional cc3 screening: No deficits noted. Tuberculosis screening: No symptoms or risk factors identified. Fall Risk Ambulatory Aid- None/Bed Rest/Nurse Assist (0 pts). Gait- Normal/Bed Rest/Wheelchair (0 pts) Mental Status- Oriented to own ability (0 pts). Assessment: 19:00 General: Appears in no apparent distress. comfortable, Behavior is calm, cooperative, cc3 appropriate for age. Pain: Complains of pain in right 4th and 5th fingers Pain does not radiate. Quality of pain is described as aching. Neuro: Level of Consciousness is awake, alert, obeys commands, Oriented to person, place, time, situation, Appropriate for age. Cardiovascular: Denies chest pain, Capillary refill < 3 seconds Patient's skin is warm and dry. Respiratory: Airway is patent Respiratory effort is even, unlabored, Respiratory pattern is regular, symmetrical. GI: Abdomen is round non-distended. : No signs and/or symptoms were reported regarding the genitourinary system. EENT: No signs and/or symptoms were reported regarding the EENT system. Derm: Skin is intact, is healthy with good turgor, Skin is pink, warm \T\ dry. normal, Bruising that is dark purple, on right 4th and 5th fingers. Musculoskeletal: Circulation, motion, and sensation intact. Range of motion: intact in all extremities. Injury Description: Laceration sustained to right 4th finger is clean, superficial, 0.5 to 2.5 cm long, was sustained 4-6 hours ago. no active bleeding noted at this time. 20:18 Reassessment: Patient appears in no apparent distress at this time. Patient and/or cc3 family updated on plan of care and expected duration. Pain level reassessed. Patient is alert, oriented x 3, equal unlabored respirations, skin warm/dry/pink. 21:15 Reassessment: Patient appears in no apparent distress at this time. Patient and/or cc3 family updated on plan of care and expected duration. Pain level reassessed. Patient is alert, oriented x 3, equal unlabored respirations, skin warm/dry/pink. JUSTINA Marroquin discharged the patient home, no prescription given. No IV cannula in situ. Patient left ER vitally stable and ambulatory. No valuables left in the patient's room. Patient denies pain at this time. Patient states feeling better. Patient states symptoms have improved. Vital Signs: 18:51 BP 140 / 83; Pulse 92; Resp 16; Temp 97.8; Pulse Ox 98% on R/A; Weight 86.18 kg; Height la1 5 ft. 4 in. (162.56 cm); 19:30 BP 139 / 95; Pulse 90; Resp 16 S; Pulse Ox 98% on R/A; cc3 20:55 BP 137 / 89; Pulse 88; Resp 15 S; Pulse Ox 98% on R/A; cc3 18:51 Body Mass Index 32.61 (86.18 kg, 162.56 cm) la1 ED Course: 18:42 Patient arrived in ED. as 18:43 See Marroquin PA is PHCP. [facility] 18:43 Wade Choe MD is Attending Physician. [facility] 18:50 Triage completed. la1 18:51 Arm band placed on right wrist. la1 18:55 Mica Wallace is Primary Nurse. cc3 19:02 Patient has correct armband on for positive identification. Bed in low position. Call cc3 light in reach. Side rails up X 1. Pulse ox on. NIBP on. 19:49 Hand Right 3 View XRAY In Process Unspecified. EDMS 20:30 Assist provider with laceration repair on right 4th finger that was 2.5 cm. or less cc3 using sutures. Set up tray. Performed by See HORN Dressed with alexa tape Patient tolerated well. Patient did not have IV access during this emergency room visit. 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 Exp: cc3 09/15/2020. Lot #: [id number]. } Route: IM; Site: right deltoid; 19:17 Follow up: Response: No adverse reaction cc3 20:30 Drug: Marcaine (0.5 %) 10 ml {Note: administered by JUSTINA Marroquin.} Volume: 10 ml; Route: cc3 Infiltration; 20:35 Follow up: Response: No adverse reaction cc3 Outcome: 21:04 Discharge ordered by . jm 21:15 Discharged to home ambulatory. cc3 21:15 Condition: stable 21:15 Discharge instructions given to patient, Instructed on discharge instructions, follow up and referral plans. wound care, Demonstrated understanding of instructions, follow-up care, wound care. 21:16 Patient left the ED. cc3 Signatures: Dispatcher [employer] EDMS See Marroquin PA PA jmm Martinez, Amelia as Attema, Lee, RN RN laMica Pimentel cc3
--- NOTE | 2019-02-03 21:05 | EDPHYS ---
Physician Documentation [facility] Name: Ilda Arndt Age: 53 yrs Sex: Female : 1965 Arrival Date: 02/03/2019 Time: 18:42 Bed 23 Private MD: ED Physician Wade Choe HPI: 02/03 18:53 This 53 yrs old Female presents to ER via Ambulatory with complaints of jmm Finger Injury. 18:53 The patient or guardian reports injury, pain. Onset: The symptoms/episode jmm began/occurred acutely, just prior to arrival. Modifying factors: The symptoms are alleviated by nothing, the symptoms are aggravated by nothing. This is a 53 year old female with a history of DM, EDS, that presents to the ED with complaints of pain and swelling to her right 4th and 5th fingers. Patient slammed her hand in a car door. Denies other injury. Not UTD on tetanus immunization. . Historical: - Allergies: 18:51 Bactrim; la1 18:51 Biaxin; la1 18:51 Codeine; la1 18:51 Latex, Natural Rubber; la1 - Home Meds: 19:03 Glucophage Oral [Active]; imatrex [Active]; L-Methylfolate 7.5 mg Oral tab daily cc3 [Active]; vitamiin d daily [Active]; - PMHx: 18:51 Arthritis; chiari malformation; Depression; Diabetes - NIDDM; ehler-danlos syndrome; la1 MRSA; Upper Extremity Thrombus; - Immunization history:: Adult Immunizations up to date. - Social history:: Smoking status: Patient/guardian denies using tobacco. - Ebola Screening: : No symptoms or risks identified at this time. ROS: 18:53 Constitutional: Negative for fever, chills, and weight loss, Cardiovascular: Negative jmm for chest pain, palpitations, and edema, Respiratory: Negative for shortness of breath, cough, wheezing, and pleuritic chest pain. 18:53 MS/extremity: Positive for injury or acute deformity, laceration. 18:53 Skin: Positive for laceration(s). 18:53 All other systems are negative. Exam: 18:53 Head/Face: atraumatic. Eyes: EOMI, no conjunctival erythema appreciated ENT: Moist jmm Mucus Membranes Neck: Trachea midline, Supple Chest/axilla: Normal chest wall appearance and motion. Cardiovascular: Regular rate and rhythm. No edema appreciated Respiratory: Normal respirations, no respiratory distress appreciated Abdomen/GI: Non distended, soft Back: Normal ROM 18:53 Constitutional: The patient appears in no acute distress, alert, awake. 18:53 Musculoskeletal/extremity: FROM noted to the right 4th and 5th metacarpal. 18:53 Skin: 1 cm laceration noted to the right 4th distal phalanx. 18:53 Neuro: Orientation: is normal, Mentation: is normal, Memory: is normal. 18:53 Psych: Behavior/mood is pleasant, anxious. Vital Signs: 18:51 BP 140 / 83; Pulse 92; Resp 16; Temp 97.8; Pulse Ox 98% on R/A; Weight 86.18 kg; Height la1 5 ft. 4 in. (162.56 cm); 19:30 BP 139 / 95; Pulse 90; Resp 16 S; Pulse Ox 98% on R/A; cc3 20:55 BP 137 / 89; Pulse 88; Resp 15 S; Pulse Ox 98% on R/A; cc3 18:51 Body Mass Index 32.61 (86.18 kg, 162.56 cm) la1 Laceration: 18:53 Wound Repair of 1cm ( 0.4in ) subcutaneous laceration to palmar aspect of distal jmm phalanx of right ring finger. Distal neuro/vascular/tendon intact. Anesthesia: Digital block administered with 3 mls of 0.5% marcaine. Wound prep: Moderate cleansing with betadine by me. Skin closed with 3 5-0 Prolene using simple sutures and sterile technique. Patient tolerated well. MDM: 18:53 Patient medically screened. [facility] 21:03 Data reviewed: vital signs, nurses notes. Counseling: I had a detailed discussion with enedelia the patient and/or guardian regarding: the historical points, exam findings, and any diagnostic results supporting the discharge/admit diagnosis, radiology results, the need for outpatient follow up, to return to the emergency department if symptoms worsen or persist or if there are any questions or concerns that arise at home. ED course: Patient given wound infection return precautions. Patient advised to follow up with pcp. Patient understood and agrees with the plan of care. . 02/03 19:07 Order name: Hand Right 3 View XRAY; Complete Time: 20:45 [facility] 02/03 20:46 Order name: Sage. 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 Exp: cc3 09/15/2020. Lot #: [id number]. } Route: IM; Site: right deltoid; 19:17 Follow up: Response: No adverse reaction cc3 20:30 Drug: Marcaine (0.5 %) 10 ml {Note: administered by JUSTINA Marroquin.} Volume: 10 ml; Route: cc3 Infiltration; 20:35 Follow up: Response: No adverse reaction cc3 Disposition: 02/03/19 21:04 Discharged to Home. Impression: Finger Laceration, Finger Contusion. - Condition is Stable. - Discharge Instructions: Laceration Care, Adult, Finger Sprain, Adult. - Medication Reconciliation Form, Thank You Letter, Antibiotic Education, Prescription Opioid Use form. - Follow up: Private Physician; When: 7 - 10 days; Reason: Recheck today's complaints, Continuance of care, Staple/Suture removal, Re-evaluation by your physician. Addendum: 02/06/2019 03:24 Co-signature as Attending Physician, Wade Choe MD. g s Signatures: Dispatcher [employer] EDMS Travis Atwood MD MD cha Mickail, Joel, PA PA Ty Mackey RN RN laWade Rock MD MD gs Cordel, Charlene cc3 Corrections: (The following items were deleted from the chart) 02/03 21:16 21:04 02/03/2019 21:04 Discharged to Home. Impression: Finger Laceration; Finger cc3 Contusion. Condition is Stable. Forms are Medication Reconciliation Form, Thank You Letter, Antibiotic Education, Prescription Opioid Use. Follow up: Private Physician; When: 7 - 10 days; Reason: Recheck today's complaints, Continuance of care, Staple/Suture removal, Re-evaluation by your physician. [facility]
== END 2019-02-03 21:16 | disposition home or self-care (01) ==
LOC: ER 18:39
PROC: 0JQJ0ZZ Repair Right Hand Subcutaneous Tissue and Fascia, Open Approach (ICD-10-PCS; principal; 2019-02-03)
DX: S61.214A Laceration without foreign body of right ring finger without damage to nail, initial encounter (principal); S60.00XA Contusion of unspecified finger without damage to nail, initial encounter; W23.0XXA Caught, crushed, jammed, or pinched between moving objects, initial encounter; Y93.9 Activity, unspecified; Y92.9 Unspecified place or not applicable; Z23 Encounter for immunization; Z88.1 Allergy status to other antibiotic agents; Z88.5 Allergy status to narcotic agent; Z91.040 Latex allergy status; Z91.048 Other nonmedicinal substance allergy status; E11.9 Type 2 diabetes mellitus without complications; F32.9 Major depressive disorder, single episode, unspecified
CPT/HCPCS: 90471; 90714; 99284

== ENCOUNTER 2019-02-18 02:10 | Emergency (ER) | payer BC ==
--- OUTSIDE RECORDS SUMMARY | 2019-02-18 02:12 | XMS REPORT | Clinical Summary ---
:1965 Author Organization [facility] Address [address] [place] [address] Care Team Providers Name Role Phone Ruslan [...] 05/18/2018 Active (EPIPEN) 0.3 mg/0.3 mL auto-injector pentazocine-nalox Take 1 0 05/09/2018 Active one (TALWIN NX) tablet by 50-0.5 mg per mouth as tablet needed. selegiline Take 5 mg by 0 05/02/2018 Active (ELDEPRYL) 5 mg mouth daily. capsule topiramate Take 200 mg 0 05/26/2000 Active (TOPAMAX) 200 MG by mouth 2 tablet (two) times a day. hydrOXYzine Take 50 mg 0 Active (VISTARIL) 25 MG by mouth 2 capsule (two) times a day as needed for itching. ALPRAZolam 0 05/05/2018 09/06/2018 Discontinued (XANAX) 0.25 MG (Alternate tablet therapy) amoxicillin-pot 0 05/09/2018 09/06/2018 Discontinued (Med clavulanate List Cleanup) (AUGMENTIN) 875-125 mg per tablet selegiline 0 05/26/2005 09/06/2018 Discontinued (ELDEPRYL) 5 mg (Duplicate order) capsule Active Problems Problem Noted Date Lung nodule 05/24/2018 Encounters Date Type Specialty Care Team Description 11/16/2018 Telephone Cardiothoracic Surgery [place], Lung nodule Faye Kaur NP (Primary Dx) 11/14/2018 [facility] Medical Cardiothoracic Surgery Jorge L Whitfield Lung nodule Review MD Yesi (Primary Dx) 11/08/2018 Office Visit Cardiothoracic Surgery Jorge L Whitfield Lung ujdy Key MD (Primary Dx) 11/07/2018 Hospital Encounter Radiology Jorge L Whitfield MD 11/07/2018 Telephone Cardiothoracic Surgery Nohemi Kidd [...] Cardiothoracic Surgery Jorge L Whitfield Lung nodule MD Yesi (Primary Dx) after 02/17/2018 Family History Medical History Relation Name Comments [...] Vital Signs Vital Sign Reading Time Taken Comments Blood Pressure 138/63 11/08/2018 1:08 PM CDT [...] 11/08/2019 Appointment Radiology Jorge L Whitfield MD [address] [facility] [address] [place] [id number] Health Maintenance Due Date Last Done Comments CERVICAL CANCER SCREENING 02/10/1984 BREAST CANCER SCREENING 2013 COLONOSCOPY SCREENING 2013 [...] 4:01 Lung nodule Results for this PM [facility] procedure are in the results section. CT HEAD EXTERNAL STUDY Routine 05/20/2018 10:54 Results for this PM [employer] [employer] procedure are in the results section. CT HEAD EXTERNAL STUDY Routine 05/20/2018 10:35 Results for this PM [facility] procedure are in the results section. after 02/17/[address] Chest Wo Contrast (11/07/2018 2:27 [...] recommended. Additional findings and details as above. [id number] Procedure Note [facility], Radiology Results Incoming - 11/07/2018 3:34 PM [...] recommended. Additional findings and details as above. [id number] Performing Organization Address City/State/Zipcode Phone Number [facility] [address] [place] [address] Pulmonary function tests, complete (09/12/2018) Narrative Performed At [facility]EB[facility] SCREEN W IFA W REFLEX TO TITER (09/06/2018 10:08 AM CDT) EST[facility] screen NEGATIVE NEGATIVE [facility] Comment: [facility] ESTEBAN IFA is a first line screen for detecting the II presence of up to approximately 150 autoantibodies in various autoimmune diseases. A negative ESTEBAN IFA result suggests ESTEBAN-associated autoimmune diseases are not present at this time. Visit Physician FAQs for interpretation of all antibodies in the [place], prevalence, and association with diseases at http://education.Bi02 Medical/ faq/LAP663 Specimen Blood Resulting Agency Comment Performing Organization Information: Site ID: [id number] Name: [facility] Address: [address] [place] [phone] Director: Dr. Ephraim Catalan Performing Organization Address [facility]/Zipcode Phone Number [email or web address] II [address] [place] [id number] MITOCHONDRIAL ANTIBODY W/REFL TITER (09/06/2018 10:08 AM CDT) Pathologist [facility] Mitochondrial Ab NEGATIVE NEGATIVE [facility] Comment: [facility] [facility] This test was developed and its analytical performance characteristics have been determined by [facility]. It has not been cleared or approved by FDA. This assay has been validated pursuant to the CLIA regulations and is used for clinical purposes. Mitochondrial Ab TNP titer [facility] titer Comment: [facility] Test Not Performed. Screening test Negative or Not Detected. Titer not performed. Specimen Resulting Agency Comment Performing Organization Information: Site ID: [id number] Name: [employer]/[facility], Address: [address] [place] [phone] Director: Hanna Velasco MD,PhD,BREE Performing Organization Address [facility] Cent[facility]ode Phone Number [email or web address]/[employer] [address] [place] [address] [phone] [facility] Total iron binding capacity (09/06/2018 10:08 AM CDT) Pathologist [facility] Iron level 61 45 - 160 mcg/dL [facility] [place] Iron binding capacity 293 250 - 450 mcg/dL [facility] (calc) [place] Iron saturation 21 11 - 50 % (calc) [facility] [place] Specimen Blood Resulting Agency Comment Performing Organization Information: Site ID: [id number] Name: [facility] Address: [address] [place] [phone] Director: Love Jimenez Performing Organization Address [facility] Cent[facility]ova [place] [address] F-actin (smooth muscle) antibody, IgG (09/06/2018 10:08 AM CDT) [facility] F-actin (smooth <20 U [facility] muscle) Ab, IgG Comment: DIAGNOSTICS/MESERET Reference Range: LS SJ < 20 NEGATIVE > OR=20 POSITIVE Antibodies [...] Performing Organization Information: Site ID: [id number] Name: [employer]/[facility], Address: [address] [place] [phone] Director: Hanna Velasco MD,PhD,BREE Performing Organization Address [facility] Centercode Phone Number navigaya/[employer] [address] [place] [address] [facility] Hepatitis acute panel (09/06/2018 10:08 AM CDT) Pathologist [facility] Hepatitis A IgM NON-REACTIVE NON-REACTIVE [facility] [place] Hepatitis B NON-REACTIVE NON-REACTIVE [facility] surface Ag [place] Hepatitis B core NON-REACTIVE NON-REACTIVE [facility] IgM [place] Hepatitis C Ab NON-REACTIVE NON-REACTIVE [facility] [place] Signal/cutoff 0.01 <1.00 [facility] Comment: [place] HCV antibody was non-reactive. There is no laboratory evidence of HCV infection. In most cases, no further action is required. However, if recent HCV exposure is suspected, a test for HCV RNA (test code 59403) is suggested. For additional information please refer to http://education.[employer]/faq/THM57i3 (This link is being provided for informational/ educational purposes only.) Specimen Blood Resulting Agency Comment Performing Organization Information: Site ID: [id number] Name: [facility] Address: [address] [place] [phone] Director: Love Jimenez Performing Organization Address [facility] [place] [facility] Cent[facility] Phone Number navigaya [address] [address] Prothrombin time with INR (09/06/2018 10:08 AM CDT) Pathologist [facility] INR 0.9 [facility] Comment: [place] Reference Range 0.9-1.1 Moderate-intensity Warfarin Therapy 2.0-3.0 Higher-intensity Warfarin Therapy 3.0-4.0 Prothrombin time 9.9 9.0 - 11.5 [facility] Comment: taniya MINOR For more information on this test, go to: http://ideacts innovations.[employer]/faq/IPM685 Specimen Blood Resulting Agency Comment Performing Organization Information: Site ID: [id number] Name: [facility] Address: [address] [place] [phone] Director: Love Jimenez Performing Organization Address [facility] [place] [facility] Centercode Phone Number navigaya [address] [address] CBC with platelet and differential (09/06/2018 10:08 AM CDT) WBC 9.0 3.8 - 10.8 [facility] Thousand/uL [place] RBC 4.29 3.80 - 5.10 [facility] Million/uL [place] HGB 12.9 11.7 - 15.5 [facility] g/dL [place] HCT 39.5 35.0 - 45.0 % [facility] [place] MCV 92.1 80.0 - 100.0 [facility] fL [place] MCH 30.1 27.0 - 33.0 pg [facility] [place] MCHC 32.7 32.0 - 36.0 [facility] g/dL [place] RDW 12.2 11.0 - 15.0 % [facility] [place] Platelet count 223 140 - 400 [facility] Thousand/uL [place] MPV 9.3 7.5 - 12.5 fL [facility] Neutrophils, absolute 3,960 1,500 - 7,800 [facility] cells/uL [place] Lymphocytes, absolute 2,169 850 - 3,900 [facility] cells/uL [place] Monocytes, absolute 540 200 - 950 [facility] cells/uL [place] Eosinophils, absolute 2,259 (H) 15 - 500 [facility] cells/uL [place] Basophils, absolute 72 0 - 200 [facility] cells/uL [place] Neutrophils 44 % [facility] [place] Lymphocytes 24.1 % [facility] [place] Monocytes 6.0 % [facility] [place] Eosinophils 25.1 % [facility] [place] Basophils + RC 0.8 % [facility] [place] Specimen Blood Resulting Agency Comment Performing Organization Information: Site ID: [id number] Name: [facility] Address: [address] [place] [phone] Director: Love Jimenez Performing Organization Address City/[facility] [place] [facility] Centercode Phone Number navigaya [address] [address] Immunoglobulin G, A, M (09/06/2018 10:08 AM CDT) IgA 225 81 - 463 mg/dL [facility] IgG 906 694 - 1,618 mg/dL [facility] [place] IgM 90 48 - 271 mg/dL [facility] [place] Specimen Blood Resulting Agency Comment Performing Organization Information: Site ID: [id number] Name: [facility] Address: [address] [place] [phone] Director: Love Jimenez Performing Organization Address City/[facility]/Zipcode Phone Number navigaya [place] [phone] GGT (09/06/2018 10:08 AM CDT) GGT 18 3 - 70 U/L [facility] [place] Specimen Blood Resulting Agency Comment Performing Organization Information: Site ID: [id number] Name: [facility] Address: [address] [place] [phone] Director: Love Jimenez Performing Organization Address [facility] [place] [facility] Centercode Phone Number navigaya [place] [address] [place] [phone] Ferritin level (09/06/2018 10:08 AM CDT) Ferritin level 76 10 - 232 ng/mL [facility] [place] Specimen Blood Resulting Agency Comment Performing Organization Information: Site ID: [id number] Name: [facility] Address: [address] [place] [phone] Director: Love Jimenez Performing Organization Address [facility] Phone Number navigaya [address] [address] Lipid panel (09/06/2018 10:08 AM CDT) Cholesterol, total 214 (H) <200 mg/dL [facility] HDL cholesterol 73 >50 mg/dL [facility] [place] Triglycerides 99 <150 mg/dL [facility] LDL cholesterol 120 (H) mg/dL (calc) zweitgeist calculated Comment: [place] Reference range: <100 Desirable range <100 mg/dL for primary prevention; <70 mg/dL for patients with CHD or diabetic patients with > or=2 CHD risk factors. LDL-C is now calculated using the Juno-Juhi calculation, which is a validated novel method providing better accuracy than the Friedewald equation in the estimation of LDL-C. Juno QUESADA et al. LIDYA. 2013;310(19): 4802-1315 (http://education.[employer] [employer] [place]/faq/MTD541) Cholesterol/HDL 2.9 <5.0 (calc) [facility] Non-HDL cholesterol 141 (H) <130 mg/dL z[facility]ist Comment: (calc) [place] For patients with diabetes plus 1 major ASCVD risk factor, treating to a non-HDL-C goal of <100 mg/dL (LDL-C of <70 mg/dL) is considered a therapeutic option. Specimen Blood Resulting Agency Comment Performing Organization Information: Site ID: [id number] Name: [facility] Address: [address] [place] [phone] Director: Love Jimenez Performing Organization Address City/[facility] Phone Number navigaya [place] [phone] Comprehensive metabolic panel (09/06/2018 10:08 AM CDT) Glucose 91 65 - 99 [facility] Comment: mg/dL [place] Fasting reference interval BUN, whole blood 15 7 - 25 mg/dL [facility] [place] Creatinine 0.93 0.50 - 1.05 [facility] Comment: mg/dL [place] For patients >49 years of age, the reference limit for Creatinine is approximately 13% higher for people identified as -Angolan. EGFR Non-Afr. 69 > OR=60 [facility] [place] mL/min/1.73m [place] 2 EGFR 80 > OR=60 [facility] [place] mL/min/1.73m [place] 2 BUN/creatinine NOT APPLICABLE 6 - 22 [facility] ratio (calc) [place] Sodium 140 135 - 146 [facility] mmol/L [place] Potassium 3.4 (L) 3.5 - 5.3 [facility] mmol/L [place] Chloride 106 98 - 110 [facility] mmol/L [place] CO2 28 20 - 32 [facility] mmol/L [place] Calcium 9.2 8.6 - 10.4 [facility] mg/dL [place] Protein 6.4 6.1 - 8.1 [facility] g/dL [place] Albumin, S 3.7 3.6 - 5.1 [facility] g/dL [place] Globulin, total 2.7 1.9 - 3.7 [facility] g/dL (calc) [place] Albumin/globulin 1.4 1.0 - 2.5 [facility] ratio (calc) [place] Total bilirubin 0.3 0.2 - 1.2 [facility] mg/dL [place] Alkaline 110 33 - 130 U/L [facility] phosphatase [place] AST 18 10 - 35 U/L [facility] [place] ALT 21 6 - 29 U/L [facility] [place] Specimen Blood Resulting Agency Comment Performing Organization Information: Site ID: [id number] Name: [facility] Address: [address] [place] [phone] Director: Love Jimenez Performing Organization Address City/State/Zipcode Phone Number TI [email or web address] [address] [address] [address] Head External Study (05/20/2018 10:54 PM [facility] [employer])Only the most recent of2 resultswithin the time period is included. Specimen Narrative Performed At This exam was not acquired at a [facility] facility and has not been [facility] interpreted by a [facility] Provider.The exam was imported into our imaging system for comparisons purposes. Performing Organization Address City/State/Zipcode Phone Number [facility] [address] [place] [address] after 02/17/2018 Advance Directives For more information, please contact: [phone] Type Date Recorded Patient Clock And Watch Hands Dipper Explanation Advance Directives, Living Will 08/06/2018 2:07 PM and Medical Power of Florist
[2019-02-18] MEDS ORDERED: ONDANSETRON 4 MG/2 ML VIAL ONE (02:38)
[2019-02-18] MEDS ORDERED: KETOROLAC 30 MG/ML INJ ONE (02:38)
[2019-02-18] MEDS ORDERED: NA CHLORIDE 0.9% 500 ML ONE (02:38)
--- NOTE | 2019-02-18 03:24 | ER ---
Nurse's Notes [facility] Name: Ilda Arndt Age: 54 yrs Sex: Female : 1965 Arrival Date: 02/18/2019 Time: 02:12 Bed 5 Private MD: Ruslan Landin V Diagnosis: Acute headache. Chiari malformation Presentation: 02/18 02:21 Presenting complaint: Patient states: she has a chiari malformation headache x 5 days. aa1 Transition of care: patient was not received from another setting of care. Onset of symptoms was February 14, 2019. Risk Assessment: Do you want to hurt yourself or someone else? Patient reports no desire to harm self or others. Initial Sepsis Screen: Does the patient meet any 2 criteria? No. Patient's initial sepsis screen is negative. Does the patient have a suspected source of infection? No. Patient's initial sepsis screen is negative. Care prior to arrival: None. 02:21 Method Of Arrival: Ambulatory aa1 02:21 Acuity: ANDRE 3 aa1 Triage Assessment: 02:24 Headache History: The patient has had previous headaches and this one is similar to aa1 previous episodes. General: Appears in no apparent distress. comfortable, Behavior is calm, cooperative, appropriate for age. 02:28 Pain: Pain at worst was 10 out of 10 on a pain scale. Pain began 5 days Also complains jd3 of nausea. Historical: - Allergies: 02:24 Bactrim; aa1 02:24 Biaxin; aa1 02:24 Codeine; aa1 02:24 Latex, Natural Rubber; aa1 - Home Meds: 02:24 Glucophage 1,000 mg oral tab 1 tab 2 times per day [Active]; Topamax 200 mg Oral tab 1 aa1 tab 2 times per day [Active]; Imitrex Oral as needed [Active]; selegiline HCl 5 mg oral cap 1 cap daily [Active]; Zofran (as hydrochloride) 4 mg Oral tab as needed [Active]; Talwin NX Oral as needed [Active]; - PMHx: 02:24 Arthritis; chiari malformation; Depression; Diabetes - NIDDM; ehler-danlos syndrome; aa1 MRSA; Upper Extremity Thrombus; - PSHx: 02:24 Tubal ligation; Cholecystectomy; sinus sx; aa1 - Immunization history:: Flu vaccine is not up to date. - Social history:: Smoking status: Patient/guardian denies using tobacco. - Ebola Screening: : No symptoms or risks identified at this time. Screenin:28 Abuse screen: Denies threats or abuse. Nutritional screening: No deficits noted. jd3 Tuberculosis screening: No symptoms or risk factors identified. Fall Risk Ambulatory Aid- None/Bed Rest/Nurse Assist (0 pts). Gait- Normal/Bed Rest/Wheelchair (0 pts) Mental Status- Oriented to own ability (0 pts). Total Arias Fall Scale indicates No Risk (0-24 pts). Assessment: 02:24 General: Appears in no apparent distress. uncomfortable, Behavior is calm, cooperative, jd3 appropriate for age. Pain: Complains of pain in head. Neuro: Level of Consciousness is awake, alert, obeys commands, Oriented to person, place, time, situation, Moves all extremities. Full function Gait is steady, Speech is normal, Reports headache photophobia Denies blurred vision dizziness, numbness. Cardiovascular: Denies chest pain, shortness of breath, Capillary refill < 3 seconds Patient's skin is warm and dry. Respiratory: Airway is patent Respiratory effort is even, unlabored, Respiratory pattern is regular, symmetrical, Denies cough, shortness of breath at rest. GI: No signs and/or symptoms were reported involving the gastrointestinal system. : No signs and/or symptoms were reported regarding the genitourinary system. EENT: No signs and/or symptoms were reported regarding the EENT system. Derm: Skin is intact, Skin is dry, Skin is normal, Skin temperature is warm. Musculoskeletal: Circulation, motion, and sensation intact. Range of motion: intact in all extremities. 03:20 Reassessment: Patient appears in no apparent distress at this time. Patient and/or jd3 family updated on plan of care and expected duration. Pain level reassessed. Patient is alert, oriented x 3, equal unlabored respirations, skin warm/dry/pink. Patient denies pain at this time. Patient states feeling better. Vital Signs: 02:24 BP 147 / 81; Pulse 86; Resp 18; Temp 97.6; Pulse Ox 100% ; Weight 86.18 kg; Height 5 aa1 ft. 4 in. (162.56 cm); Pain 9/10; 03:20 BP 110 / 67; Pulse 69; Resp 16 S; Pulse Ox 98% on R/A; Pain 0/10; jd3 02:24 Body Mass Index 32.61 (86.18 kg, 162.56 cm) aa1 ED Course: 02:12 Patient arrived in ED. es 02:13 Ruslan Landin MD is Private Physician. es 02:15 Nikita Tracy MD is Attending Physician. pkl 02:22 Triage completed. aa1 02:23 Mick Perry RN is Primary Nurse. jd3 02:24 Arm band placed on right wrist. aa1 02:28 Patient has correct armband on for positive identification. Bed in low position. Call jd3 light in reach. Side rails up X 1. 02:49 Inserted saline lock: 20 gauge in left antecubital area, using aseptic technique. Blood jd3 collected. 03:20 No provider procedures requiring assistance completed. jd3 03:22 Ruslan Landin MD is Referral Physician. pkl 03:29 IV discontinued, intact, bleeding controlled, No redness/swelling at site. Pressure jd3 dressing applied. Administered Medications: 02:48 Drug: NS 0.9% 500 ml Route: IV; Rate: bolus; Site: left antecubital; jd3 03:21 Follow up: Response: No adverse reaction; IV Status: Completed infusion; IV Intake: jd3 500ml 02:48 Drug: TORadol 30 mg Route: IVP; Site: left antecubital; jd3 03:21 Follow up: Response: No adverse reaction; Pain is decreased jd3 02:48 Drug: Zofran 4 mg Route: IVP; Site: left antecubital; jd3 03:21 Follow up: Response: No adverse reaction; Nausea is decreased jd3 Intake: 03:21 IV: 500ml; Total: 500ml. jd3 Outcome: 03:23 Discharge ordered by . pkl 03:29 Discharged to home ambulatory. jd3 03:29 Condition: stable 03:29 Discharge instructions given to patient, Instructed on discharge instructions, follow up and referral plans. medication usage, Demonstrated understanding of instructions, follow-up care, medications, Prescriptions given X 2. 03:30 Patient left the ED. jd3 Signatures: Ya Bryan RN RN aa1 Nikita Tracy MD MD pkl Kristel Pineda Jonathon, RN RN jd3
--- NOTE | 2019-02-18 03:24 | EDPHYS ---
Physician Documentation [facility] Name: Ilda Arndt Age: 54 yrs Sex: Female : 1965 Arrival Date: 02/18/2019 Time: 02:12 Bed 5 Private MD: Ruslan Landin V ED Physician Nikita Tracy HPI: 02/18 02:35 This 54 yrs old Female presents to ER via Ambulatory with complaints of pkl Headache. 02:35 The patient complains of pain to the top of head, forehead, left side of the back of pkl head and right side of the back of head. The patient describes the headache as constant. Onset: The symptoms/episode began/occurred 5 day(s) ago. Associated signs and symptoms: Pertinent positives: nausea. The patient has experienced similar episodes in the past, several times. Patient has Chiari malformation. Has similar type of pain in the past.. Historical: - Allergies: 02:24 Bactrim; aa1 02:24 Biaxin; aa1 02:24 Codeine; aa1 02:24 Latex, Natural Rubber; aa1 - Home Meds: 02:24 Glucophage 1,000 mg oral tab 1 tab 2 times per day [Active]; Topamax 200 mg Oral tab 1 aa1 tab 2 times per day [Active]; Imitrex Oral as needed [Active]; selegiline HCl 5 mg oral cap 1 cap daily [Active]; Zofran (as hydrochloride) 4 mg Oral tab as needed [Active]; Talwin NX Oral as needed [Active]; - PMHx: 02:24 Arthritis; chiari malformation; Depression; Diabetes - NIDDM; ehler-danlos syndrome; aa1 MRSA; Upper Extremity Thrombus; - PSHx: 02:24 Tubal ligation; Cholecystectomy; sinus sx; aa1 - Immunization history:: Flu vaccine is not up to date. - Social history:: Smoking status: Patient/guardian denies using tobacco. - Ebola Screening: : No symptoms or risks identified at this time. ROS: 02:35 Eyes: Negative for injury, pain, redness, and discharge, ENT: Negative for injury, pkl pain, and discharge, Neck: Negative for injury, pain, and swelling, Cardiovascular: Negative for chest pain, palpitations, and edema, Respiratory: Negative for shortness of breath, cough, wheezing, and pleuritic chest pain. 02:35 Abdomen/GI: Positive for nausea. 02:35 Back: Negative for acute changes. 02:35 : Negative for urinary symptoms. 02:35 MS/extremity: Negative for acute changes. 02:35 Skin: Negative for rash. 02:35 Neuro: Positive for headache. Exam: 02:35 Head/Face: Normocephalic, atraumatic. Eyes: Pupils equal round and reactive to light, pkl extra-ocular motions intact. Lids and lashes normal. Conjunctiva and sclera are non-icteric and not injected. Cornea within normal limits. Periorbital areas with no swelling, redness, or edema. ENT: Nares patent. No nasal discharge, no septal abnormalities noted. Tympanic membranes are normal and external auditory canals are clear. Oropharynx with no redness, swelling, or masses, exudates, or evidence of obstruction, uvula midline. Mucous membranes moist. Neck: Trachea midline, no thyromegaly or masses palpated, and no cervical lymphadenopathy. Supple, full range of motion without nuchal rigidity, or vertebral point tenderness. No Meningismus. Chest/axilla: Normal chest wall appearance and motion. Nontender with no deformity. No lesions are appreciated. Cardiovascular: Regular rate and rhythm with a normal S1 and S2. No gallops, murmurs, or rubs. Normal PMI, no JVD. No pulse deficits. Respiratory: Lungs have equal breath sounds bilaterally, clear to auscultation and percussion. No rales, rhonchi or wheezes noted. No increased work of breathing, no retractions or nasal flaring. Abdomen/GI: Soft, non-tender, with normal bowel sounds. No distension or tympany. No guarding or rebound. No evidence of tenderness throughout. Back: No spinal tenderness. No costovertebral tenderness. Full range of motion. Skin: Warm, dry with normal turgor. Normal color with no rashes, no lesions, and no evidence of cellulitis. MS/ Extremity: Pulses equal, no cyanosis. Neurovascular intact. Full, normal range of motion. Neuro: Awake and alert, GCS 15, oriented to person, place, time, and situation. Cranial nerves II-XII grossly intact. Motor strength 5/5 in all extremities. Sensory grossly intact. Cerebellar exam normal. Normal gait. Vital Signs: 02:24 BP 147 / 81; Pulse 86; Resp 18; Temp 97.6; Pulse Ox 100% ; Weight 86.18 kg; Height 5 aa1 ft. 4 in. (162.56 cm); Pain 9/10; 03:20 BP 110 / 67; Pulse 69; Resp 16 S; Pulse Ox 98% on R/A; Pain 0/10; jd3 02:24 Body Mass Index 32.61 (86.18 kg, 162.56 cm) aa1 MDM: 02:15 Patient medically screened. pkl 03:13 Data reviewed: vital signs, nurses notes. pkl 03:19 ED course: Patient feeling better. Headache improved. Will see Dr. Landin for appt. for pkl MRI brain in 1 to 2 days. 02/18 02:37 Order name: IV; Complete Time: 02:48 jd3 Administered Medications: 02:48 Drug: NS 0.9% 500 ml Route: IV; Rate: bolus; Site: left antecubital; jd3 03:21 Follow up: Response: No adverse reaction; IV Status: Completed infusion; IV Intake: jd3 500ml 02:48 Drug: TORadol 30 mg Route: IVP; Site: left antecubital; jd3 03:21 Follow up: Response: No adverse reaction; Pain is decreased jd3 02:48 Drug: Zofran 4 mg Route: IVP; Site: left antecubital; jd3 03:21 Follow up: Response: No adverse reaction; Nausea is decreased jd3 Disposition: 02/18/19 03:23 Discharged to Home. Impression: Acute headache. Chiari malformation. - Condition is Stable. - Prescriptions for Ultram 50 mg Oral Tablet - take 1 tablet by ORAL route 2 times per day As needed; 12 tablet. Zofran 4 mg Oral Tablet - take 1 tablet by ORAL route every 12 hours As needed; 6 tablet. - Medication Reconciliation Form, Thank You Letter, Antibiotic Education, Prescription Opioid Use form. - Follow up: Ruslan Landin MD; When: 1 - 2 days; Reason: Re-evaluation by your physician. - Problem is new. - Symptoms have improved. Signatures: Ya Bryan RN RN aa1 Nikita Tracy MD MD pkl Mick Perry RN RN jd3 Corrections: (The following items were deleted from the chart) 03:30 03:23 02/18/2019 03:23 Discharged to Home. Impression: Acute headache. Chiari jd3 malformation. Condition is Stable. Forms are Medication Reconciliation Form, Thank You Letter, Antibiotic Education, Prescription Opioid Use. Follow up: Ruslan Landin; When: 1 - 2 days; Reason: Re-evaluation by your physician. Problem is new. Symptoms have improved. pkl
== END 2019-02-18 03:30 | disposition home or self-care (01) ==
LOC: ER 02:10
DX: G93.5 Compression of brain (principal); E11.9 Type 2 diabetes mellitus without complications; F32.9 Major depressive disorder, single episode, unspecified; Z88.1 Allergy status to other antibiotic agents; Z88.5 Allergy status to narcotic agent; Z91.040 Latex allergy status; Z91.048 Other nonmedicinal substance allergy status
CPT/HCPCS: 96361; 96375; 96374; 99284; J2405

== ENCOUNTER 2019-12-02 20:24 | Emergency (ER) | payer BC ==
--- OUTSIDE RECORDS SUMMARY | 2019-12-02 20:26 | XMS REPORT | Clinical Summary ---
:1965 Author Organization [facility] Address [address] [place] [address] Care Team Providers Name Role Phone MD Mushtaq Primary Care Provider Allergies Active Allergy Reactions Severity Noted Date Comments Clarithromycin Rash Low 05/24/2018 Codeine Hives Medium 05/24/2018 Latex, Natural Rubber Hives High 05/24/2018 Medications Medication Sig Dispensed Refills Start Date End Date Status cholecalciferol, 0 05/26/2017 Ac tive vitamin D3, (VITAMIN D3) 1,000 unit capsule epINEPHrine (EPIPEN) 0 05/18/2018 Active 0.3 mg/0.3 mL auto-injector pentazocine-naloxone Take 1 tablet by 0 05/09/2018 Active (TALWIN NX) 50-0.5 mg mouth as needed. per tablet selegiline (ELDEPRYL) 5 Take 5 mg by 0 05/02/2018 Active mg capsule mouth daily. topiramate (TOPAMAX) Take 200 mg by 0 05/26/2000 Active 200 MG tablet mouth 2 (two) times a day. hydrOXYzine (VISTARIL) Take 50 mg by 0 Active 25 MG capsule mouth 2 (two) times a day as needed for itching. Active Problems Problem Noted Date Lung nodule 05/24/2018 Encounters Date Type Specialty Care Team Description 11/13/2019 Telephone Cardiothoracic Surgery Nohemi Kidd MA 11/04/2019 Travel after 12/01/2018 Family History Medical History Relation Name Comments [...] Travel End No recent travel history available. COVID-19 Exposure Response Date Recorded In the last month, have you been in contact with No / Unsure 11/04/2019 9:46 AM CDT someone who was confirmed or suspected to have Coronavirus / COVID-19? Last Filed Vital Signs Not on file Plan of Treatment Health Maintenance Due Date Last Done Comments CERVICAL CANCER SCREENING 02/10/1984 BREAST CANCER SCREENING 2013 COLONOSCOPY SCREENING 2013 SHINGLES VACCINES (#1) 2013 INFLUENZA VACCINE 01/25/2020 Results Not on fileafter 12/01/2018 Advance Directives For more information, please contact: [phone] Type Date Recorded Patient Reading Tutor Explanati on Advance Directives, Living Will 08/06/2018 2:07 PM and Medical Power of Driver Examiner
--- OUTSIDE RECORDS SUMMARY | 2019-12-02 20:27 | XMS REPORT | Continuity of Care Document ---
:1965 Author Organization [facility] t Address [address] [place] [address] Care Team Providers Name Role Phone Mushtaq SHERMAN Primary Care Physician Marti WEIR Attending Clinician Unavailable ARIADNA Attending Clinician Unavailable MICHAEL Attending Clinician Unavailable Payers Payer Name Policy Type Policy Number Effective Date Expiration Date S milka BCBSBCBS xxxxxxxxxxxx 2014 [place] CHOICE 00:00:00 [employer] PPO/FEDERAL EMPL PPOxxxxxxxxxxx 2014-Pres entPPO Problems Condition Condition Condition Status Onset Resolution Last Treating Co mments Source Name Details Category Date Date Treatment Clinician Date Lung Lung Disease Active 2017-06 [place] nodule nodule 07-24 [facility] 00:00: st 00 History of History of Problem Resolve [facility] depression depression d [facility] of [place] [facility] ans History of History of Problem Resolve [facility] Essential Essential d ity of hypertens[place] hypertens[place] on, benign on, benign Ph ysici ans History of History of Problem Resolve [facility] hyperlipid hyperlipid d it y of [place] [facility] ans History of History of Problem Resolve [facility] Type 2 Type 2 d ity of diabetes diabetes [place] mellitus mellitus Physic i without without ans complicati complicati on, on, without without long-term long-term current current use of use of insulin insulin Pain in Pain in Problem Active Univers both hands both hands it y of [place] [facility] ans Other Other Problem Active Univers secondary secondary ity of osteoarthr osteoarthr [place] itis of itis of Physici both hands both hands an s Acute pain Acute pain Problem Active U nivers of left of left ity of knee knee [place] [facility]ici ans Allergies, Adverse Reactions, Alerts Allergy Allergy Status Severity Reaction(s) Onset Inactive Treating Comm ents Source Name Type Date Date Clinician Carson Del Rosarioensi Active Rash 2017-06 Nagi n omycin ty to 07-24 [facility] adverse 00:00: st reaction 00 s to drug Codeine Propensi Active Hives 2017-06 [place] ty to 07-24 [facility] adverse 00:00: st reaction 00 s to drug Latex, Propensi Active Hives 2017-06 [facility] ty to 07-24 Methodi Rubber adverse 00:00: st reaction 00 s to drug Bactrim drug Active Rash Univers allergy ity of [place] [facility] ans Biaxin drug Active Rash [facility] allergy [facility]y of [place] [facility] codeine drug Active Rash [facility] allergy ity of [place] [facility] ans Latex allergy Active Shortness of Uni vers to breath, Rash ity of [facility] e Physici ans Family History Family Member Diagnosis Comments Start Date Stop Date Source aunt Family history of Univers ity of rheumatoid [place] Physicia ns arthritis Maternal Prostate cancer [place] M ethodist grandfather Paternal Lung cancer [place] Metho dist grandfather Social History Social Habit Start Date Stop Date Quantity Comments Source Sex Assigned At Dani durán [facility] Exposure to SARS-CoV-2 Not sure Mehdi bird [facility] (event) Smoking Status Start Date Stop Date Source Never smoker [place] Method[facility] t Medications Ordered Filled Start Stop Current Ordering Indication Dosage Frequency Signature Comments Components Source Medication Medication Date Date Medication? Clinician (SIG) Name Name hydrOXYzine Yes 50mg Q.5D Take 50 mg [place] (VISTARIL) 5-16 by mouth 2 Met hodi 25 MG 13:15: (two) st capsule 04 times a day as needed for itching. epINEPHrine 2017-06 Yes Nagi villareal (EPIPEN) 07-18 [facility]i 0.3 mg/0.3 00:00: st mL 00 auto-inject or pentazocine 2017-06 Yes 1{tbl} Take 1 Mehdi bird -naloxone 1-14 tablet by Meth[place] (TALWIN NX) 00:00: mouth as st 50-0.5 mg 00 needed. per tablet selegiline 2017-06 Yes 5mg QD Take 5 mg Mehdi bird (ELDEPRYL) 1-07 by mouth Metho di 5 mg 00:00: daily. st capsule 00 Glucophage Glucophage Yes Q0.5D TAKE 1 Univers 1000 MG 1000 MG 1-18 TABLET ity of Oral Tablet Oral Tablet 00:00: TWICE [place] 00 DAILY WITH Physici MEALS. ans Topamax 200 Topamax 200 2017- Yes Q0.5D TAKE 1 Univers MG Oral MG Oral 1-18 TABLET ity of Tablet Tablet 00:00: TWICE [place] 00 DAILY. Physici ans traMADol traMADol 2017-0 Yes Q0.3333D TAKE 1 Univers HCl - 50 MG HCl - 50 MG 1-18 TABLET 3 ity of Oral Tablet Oral Tablet 00:00: TIMES [place] 00 DAILY Physici NEEDED. ans Vitamin D Vitamin D Yes 1 QD TAKE 1 U nivers 50 MCG 50 MCG 1-18 CAPSULE ity of (1999) (1999) 00:00: [place]ILY [place] Oral Oral 00 Physici Capsule Capsule ans Zofran 4 MG Zofran 4 MG 2017- Yes 1 Q8H TAKE 1 Univers Oral Tablet Oral Tablet 1-18 TABLET ity of 00:00: EVERY 8 [place] 00 HOURS PRN Physici ans Selegiline Selegiline Yes QD TAKE 1 Univers HCl - 5 MG HCl - 5 MG 1-18 TABLET i ty of Oral Tablet Oral Tablet 00:00: DAILY [place] 00 Physici ans Diclofenac Diclofenac Yes BRYCE Apply 2 Univers Sodium 1 % Sodium 1 % 1-18 MICHAEL grams to ity of Transdermal Transdermal 00:00: M.D. affected [place] Gel Gel 00 hand marlo Physici up to four ans times daily as needed. Max daily dose 32 grams. cholecalcif 2016-06 Yes [place], 2-01 [facility] vitamin D3, 00:00: st (VITAMIN 00 D3) 1,000 unit capsule topiramate 1999- Yes 200mg Q.5D Take 200 [place] (TOPAMAX) 2-01 mg by [facility] 200 MG 00:00: mouth 2 st tablet 00 (two) times a day. Procedures Procedure Date / Time Performing Clinician Source Performed [U] XRAY KNEE 4 OR MORE 2019-05-13 00:00:00 [facility] VWS LEFT [id number] Physicians History of Cholecystectomy [facility] Physicians History of Tubal ligation [facility] Physicians History of Breast [facility] Physicians History of Abdominoplasty [facility] Physicians Plan of Care Planned Activity Planned Date Details Comments Source Future Scheduled 2020-01-25 INFLUENZA VACCINE [place] [facility] 00:00:00 [code = INFLUENZA VACCINE] Future Scheduled 2013 BREAST CANCER [facility] Test 00:00:00 SCREENING [code = BREAST CANCER SCREENING] Future Scheduled 2013 COLONOSCOPY SCREENING [place] [facility] Test 00:00:00 [code = COLONOSCOPY SCREENING] Future Scheduled 2013 SHINGLES VACCINES [place] [facility] Test 00:00:00 (#1) [code = SHINGLES VACCINES (#1)] Future Scheduled 1984-02-10 Screening for [facility] Test 00:00:00 malignant neoplasm of cervix (procedure) [code = 427435591] Encounters Start End Encounter Admission Attending Care Care Encounter Source Date/Time Date/Time Type Type Clinicians Facility Department ID 2019-05-13 2019-05-13 [facility] [id number] Univers 09:30:00 09:30:00 t; GROVER ROSENTHAL, [facility] Gracie Lehman M.D. Orthopedic Physi ci and Spine [facility] 2017-07-13 2017-07-13 AppointCAMRON Chew UTP [id number] Univers 11:00:00 11:00:00 t; BRYCE RODRIGUEZ M.D. Cele M.D. [facility] Results This patient has no known results.
[2019-12-02] MEDS ORDERED: predniSONE 20 MG TAB ONE (21:30)
[2019-12-02] MEDS ORDERED: DIPHENHYDRAMINE 25 MG TAB/CAP ONE (22:01)
--- NOTE | 2019-12-02 22:09 | ER ---
Nurse's Notes [facility] Name: Ilda Arndt Age: 54 yrs Sex: Female : 1965 Arrival Date: 12/02/2019 Time: 20:25 Bed 18 Private MD: Diagnosis: Allergic Reaction Presentation: 12/01 20:28 Chief complaint: Patient states: At 1400 today, open boxes with fabric that was molded. ca1 Reports itching, sneezing, nasal congestion, chest pain, SOB. Took a total of Benadryl 100 mg and rescue inhaler. Started feeling worse with "throat hurting and feeling fuzzy like it's swelling". Coronavirus screen: Proceed with normal triage. Patient denies a cough. Patient denies shortness of breath or difficulty breathing. Patient denies measured and/or subjective temperature greater than 100.4F prior to today's visit. Patient denies travel on a cruise ship or to a country the [facility]NOTE 2[facility] currently lists as an affected area. Patient denies contact with known and/or suspected case of COVID-19. Ebola Screen: Patient negative for fever greater than or equal to 101.5 degrees Fahrenheit, and additional compatible Ebola Virus Disease symptoms Patient denies exposure to infectious person. Patient denies travel to an Ebola-affected area in the 21 days before illness onset. No symptoms or risks identified at this time. Onset: The symptoms/episode began/occurred 6 hour(s) ago. Initial Sepsis Screen: Does the patient meet any 2 criteria? No. Patient's initial sepsis screen is negative. Does the patient have a suspected source of infection? No. Patient's initial sepsis screen is negative. Risk Assessment: Do you want to hurt yourself or someone else? Patient reports no desire to harm self or others. Onset of symptoms was December 02, 2019 at 14:00. 20:28 Method Of Arrival: Ambulatory ca1 20:28 Acuity: ANDRE 2 ca1 20:51 Anaphylaxis evaluation, no signs or symptoms of anaphylaxis were noted just fuzzy mg2 troat, but no edema or redness noted in the throat upon inspection. Historical: - Allergies: 20:33 Bactrim; ca1 20:33 Biaxin; ca1 20:33 Codeine; ca1 20:33 Latex, Natural Rubber; ca1 20:33 Bees; ca1 - PMHx: 20:33 Arthritis; chiari malformation; Depression; Diabetes - NIDDM; ehler-danlos syndrome; ca1 MRSA; Upper Extremity Thrombus; - PSHx: 20:33 Tubal ligation; Cholecystectomy; sinus sx; ca1 - Immunization history:: Adult Immunizations up to date. - Social history:: Smoking status: Patient denies any tobacco usage or history of. Screenin:51 Abuse screen: Denies threats or abuse. Denies injuries from another. Nutritional mg2 screening: No deficits noted. Tuberculosis screening: No symptoms or risk factors identified. Fall Risk None identified. Assessment: 20:49 General: Appears in no apparent distress. comfortable, Behavior is calm, cooperative. mg2 Pain: Denies pain. Neuro: Level of Consciousness is awake, alert, obeys commands, Oriented to person, place, time, situation. Cardiovascular: Capillary refill < 3 seconds Patient's skin is warm and dry. Respiratory: Airway is patent Respiratory effort is even, unlabored, Respiratory pattern is regular, symmetrical, Breath sounds are clear bilaterally. in mediastinum, right upper lobe, left upper lobe, right middle lobe, left lower lobe, right lower lobe, left posterior upper lobe, right posterior upper lobe, left posterior lower lobe, right posterior middle lobe and right posterior lower lobe. GI: No signs and/or symptoms were reported involving the gastrointestinal system. : No signs and/or symptoms were reported regarding the genitourinary system. EENT: Reports fuzzy throat, itchy. Derm: Skin is intact, is healthy with good turgor, Skin is pink, warm \\T\\ dry. normal. Musculoskeletal: No signs and/or symptoms reported regarding the musculoskeletal system. Vital Signs: 20:28 BP 159 / 101; Pulse 100; Resp 19 S; Temp 96.6(TE); Pulse Ox 99% on R/A; Weight 95.25 kg ca1 (R); Height 5 ft. 4 in. (162.56 cm) (R); Pain 4/10; 21:25 BP 138 / 77; Pulse 73; Resp 17; Pulse Ox 99% on R/A; mg2 20:28 Body Mass Index 36.05 (95.25 kg, 162.56 cm) ca1 ED Course: 20:25 Patient arrived in ED. ds1 20:32 Triage completed. ca1 20:33 Arm band placed on right wrist. ca1 20:49 Brooks Renae, RN is Primary Nurse. mg2 20:51 Patient has correct armband on for positive identification. Pulse ox on. NIBP on. Door mg2 closed. 20:51 No provider procedures requiring assistance completed. mg2 20:54 Lee Hurst MD is Attending Physician. [facility] 22:00 Patient did not have IV access during this emergency room visit. mg2 Administered Medications: 21:25 Drug: predniSONE 60 mg Route: PO; mg2 22:00 Follow up: Response: No adverse reaction mg2 21:57 Drug: Benadryl 50 mg Route: PO; mg2 22:05 Follow up: Response: No adverse reaction; Medication administered at discharge. mg2 Outcome: 22:08 Discharge ordered by . 7 22:20 Discharged to home ambulatory. mg2 22:20 Condition: stable 22:20 Discharge instructions given to patient, Instructed on discharge instructions, follow mg2 up and referral plans. medication usage, Demonstrated understanding of instructions, follow-up care, medications, Prescriptions given X 3. 22:21 Patient left the ED. mg2 Signatures: Holley Alaniz ds1 Brooks Renae RN RN [facility] Christianne Dean RN RN ca1 Lee Hurst MD MD [facility] Corrections: (The following items were deleted from the chart) 20:34 20:28 Chief complaint: Patient states: At 1400 today, open boxes with fabric that was ca1 molded. Reports itching, sneezing, nasal congestion, chest pain, SOB. Took a total of Benadryl 100 mg and rescue inhaler. Started feeling worse. ca1 :34 20:28 Acuity: ANDRE 4 ca1 ca1
--- NOTE | 2019-12-02 22:09 | EDPHYS ---
Physician Documentation [facility] Name: Ilda Arndt Age: 54 yrs Sex: Female : 1965 Arrival Date: 12/02/2019 Time: 20:25 Bed 18 Private MD: ED Physician Lee Hurst HPI: 12/01 22:02 This 54 yrs old Female presents to ER via Ambulatory with complaints of mh7 Allergic Reaction, Chest Tightness. 22:02 The patient presents with itching, nasal itching, runny nose, shortness of breath. mh7 Onset: The symptoms/episode began/occurred today, 10 hour(s) ago. Associated signs and symptoms: Pertinent positives: shortness of breath, Pertinent negatives: abdominal pain, Altered mental status chest pain, dysphagia, fever, headache, hives, Light headed nausea, rash, swelling, Syncope vomiting. Possible causes: dust, mold from old clothing. At home the patient or guardian has treated the symptoms with Benadryl, respiratory inhaler. Severity of symptoms: At their worst the symptoms were moderate today, in the emergency department the symptoms have improved markedly. The patient has experienced similar episodes in the past, multiple times. Historical: - Allergies: 20:33 Bactrim; ca1 20:33 Biaxin; ca1 20:33 Codeine; ca1 20:33 Latex, Natural Rubber; ca1 20:33 Bees; ca1 - PMHx: 20:33 Arthritis; chiari malformation; Depression; Diabetes - NIDDM; ehler-danlos syndrome; ca1 MRSA; Upper Extremity Thrombus; - PSHx: 20:33 Tubal ligation; Cholecystectomy; sinus sx; ca1 - Immunization history:: Adult Immunizations up to date. - Social history:: Smoking status: Patient denies any tobacco usage or history of. ROS: 22:02 Constitutional: Negative for fever, chills, and weight loss, Neck: Negative for injury, mh7 pain, and swelling, Cardiovascular: Negative for chest pain, palpitations, and edema, Abdomen/GI: Negative for abdominal pain, nausea, vomiting, diarrhea, and constipation, Back: Negative for injury and pain, : Negative for injury, bleeding, discharge, and swelling, MS/Extremity: Negative for injury and deformity, Skin: Negative for injury, rash, and discoloration, Neuro: Negative for headache, weakness, numbness, tingling, and seizure, Psych: Negative for depression, anxiety, suicide ideation, homicidal ideation, and hallucinations, Endocrine: Negative for neck swelling, polydipsia, polyuria, polyphagia, and marked weight changes, Hematologic/Lymphatic: Negative for swollen nodes, abnormal bleeding, and unusual bruising. Exam: 22:02 Constitutional: This is a well developed, well nourished patient who is awake, alert, mh7 and in no acute distress. Head/Face: Normocephalic, atraumatic. Eyes: Pupils equal round and reactive to light, extra-ocular motions intact. Lids and lashes normal. Conjunctiva and sclera are non-icteric and not injected. Cornea within normal limits. Periorbital areas with no swelling, redness, or edema. ENT: Nares patent. No nasal discharge, no septal abnormalities noted. Tympanic membranes are normal and external auditory canals are clear. Oropharynx with no redness, swelling, or masses, exudates, or evidence of obstruction, uvula midline. Mucous membranes moist. Neck: Trachea midline, no thyromegaly or masses palpated, and no cervical lymphadenopathy. Supple, full range of motion without nuchal rigidity, or vertebral point tenderness. No Meningismus. Chest/axilla: Normal chest wall appearance and motion. Nontender with no deformity. No lesions are appreciated. Cardiovascular: Regular rate and rhythm with a normal S1 and S2. No gallops, murmurs, or rubs. Normal PMI, no JVD. No pulse deficits. Respiratory: Lungs have equal breath sounds bilaterally, clear to auscultation and percussion. No rales, rhonchi or wheezes noted. No increased work of breathing, no retractions or nasal flaring. Abdomen/GI: Soft, non-tender, with normal bowel sounds. No distension or tympany. No guarding or rebound. No evidence of tenderness throughout. Back: No spinal tenderness. No costovertebral tenderness. Full range of motion. Skin: Warm, dry with normal turgor. Normal color with no rashes, no lesions, and no evidence of cellulitis. MS/ Extremity: Pulses equal, no cyanosis. Neurovascular intact. Full, normal range of motion. Neuro: Awake and alert, GCS 15, oriented to person, place, time, and situation. Cranial nerves II-XII grossly intact. Motor strength 5/5 in all extremities. Sensory grossly intact. Cerebellar exam normal. Normal gait. Psych: Awake, alert, with orientation to person, place and time. Behavior, mood, and affect are within normal limits. Vital Signs: 20:28 BP 159 / 101; Pulse 100; Resp 19 S; Temp 96.6(TE); Pulse Ox 99% on R/A; Weight 95.25 kg ca1 (R); Height 5 ft. 4 in. (162.56 cm) (R); Pain 4/10; 21:25 BP 138 / 77; Pulse 73; Resp 17; Pulse Ox 99% on R/A; mg2 20:28 Body Mass Index 36.05 (95.25 kg, 162.56 cm) ca1 MDM: 21:19 Patient medically screened. [facility] 22:06 Differential diagnosis: anaphylaxis, angioedema, bronchospasm, Hereditary Angioedema mh7 non IgE mediated drug reaction urticaria. Data reviewed: vital signs, nurses notes. Counseling: I had a detailed discussion with the patient and/or guardian regarding: the historical points, exam findings, and any diagnostic results supporting the discharge/admit diagnosis, the need for outpatient follow up, to return to the emergency department if symptoms worsen or persist or if there are any questions or concerns that arise at home. Response to treatment: the patient's symptoms have resolved after treatment, the patient's blood pressure is in an acceptable range, mental status has returned to baseline, the patient no longer shows bradycardia, the patient is not short of breath, the patient is not tachycardic, the patient's pain is gone, the patient's temperature has normalized. Refusal of service: The patient/guardian displays adequate decision making capability and despite a detailed discussion of alternatives, benefits, risks, and consequences refuses: all lab tests, all X-rays. 12/02 02:25 Data interpreted: Pulse oximetry: on room air is 99 %. Interpretation: normal. mh7 Administered Medications: 12/01 21:25 Drug: predniSONE 60 mg Route: PO; mg2 22:00 Follow up: Response: No adverse reaction mg2 21:57 Drug: Benadryl 50 mg Route: PO; mg2 22:05 Follow up: Response: No adverse reaction; Medication administered at discharge. mg2 Disposition: 12/02/19 22:08 Discharged to Home. Impression: Allergic Reaction. - Condition is Stable. - Discharge Instructions: Allergies, [id number]. - Prescriptions for Benadryl 25 mg Oral Capsule - take 2 capsule by ORAL route every 6 hours As needed; 30 tablet. Pepcid 20 mg Oral Tablet - take 1 tablet by ORAL route every 12 hours for 5 days; 10 tablet. Prednisone 20 mg Oral Tablet - take 2 tablet by ORAL route once daily for 5 days; 10 tablet. - Medication Reconciliation Form, Thank You Letter, Antibiotic Education, Prescription Opioid Use form. - Follow up: Private Physician; When: 1 - 2 days; Reason: Worsening of condition, Recheck today's complaints, Re-evaluation by your physician. - Problem is an acute exacerbation. - Symptoms are resolved. Signatures: Brooks Renae RN RN mg2 Acob, Cheryl, RN RN ca1 Lee Hurst MD MD mh7 Corrections: (The following items were deleted from the chart) 22:21 22:08 12/02/2019 22:08 Discharged to Home. Impression: Allergic Reaction. Condition is mg2 Stable. Forms are Medication Reconciliation Form, Thank You Letter, Antibiotic Education, Prescription Opioid Use. Follow up: Private Physician; When: 1 - 2 days; Reason: Worsening of condition, Recheck today's complaints, Re-evaluation by your physician. Problem is an acute exacerbation. Symptoms are resolved. mh7
[2019-12-02 22:53] VITALS: TEMP 96.6; O2SAT 99
[2019-12-02 22:54] VITALS: BP 138/77
== END 2019-12-02 22:21 | disposition home or self-care (01) ==
LOC: ER 20:24
DX: R07.89 Other chest pain (principal); R09.89 Other specified symptoms and signs involving the circulatory and respiratory systems; Z88.1 Allergy status to other antibiotic agents; Z88.5 Allergy status to narcotic agent; Z91.030 Bee allergy status; Z91.040 Latex allergy status
CPT/HCPCS: 99283; J7512

== ENCOUNTER 2021-01-01 12:05 | Emergency (ER) | payer BC ==
--- OUTSIDE RECORDS SUMMARY | 2021-01-01 12:32 | XMS REPORT | Continuity of Care Document ---
:1965 Author Organization [facility] t Address [address] [place] [address] Care Team Providers Name Role Phone Mushtaq SHERMAN Primary Care Physician Jerry Santana Attending Clinician Unavailable Sean Nguyen Attending Clinician Unavailable ARIADNA Attending Clinician Unavailable MICHAEL Attending Clinician Unavailable Jerry Santana Admitting Clinician Unavailable Physician, Primary or Family Admitting Clinician Unavailabl e Payers Payer Name Policy Type Policy Number Effective Date Expiration Date S ource Problems Condition Condition Condition Status Onset Resolution Last Treating Co mments Source Name Details Category Date Date Treatment Clinician Date Lung Lung Disease Active 2017-06 [place] nodule nodule 07-24 [facility] 00:00: st 00 [...] ents Source Name Type Date Date Clinician codeine DA Active SV 2020-0 [facility] 12-17 [place] [facility] sulfamet DA Active SV 0 [facility] hoxazole 12-17 [place] 00:[facility] trimetho DA Active SV 0 [facility] prim 12-17 [place] 00:[facility] adhesive DA Active SV 2020-0 [facility] 12-17 [place] [facility] clarithr DA Active SV 0 [facility] omycin 12-17 [place] 00:[facility] pineappl FA Active SV [facility] e 12-17 [place] 00:[facility] bee DA Active SV [facility] venom 12-17 [place] protein 00:00: Orthope (honey 00 dic bee) Hospita l latex DA Active SV 0 [facility] 12-17 [place] 00:[facility]: [facility] 00 [facility] Clarithr Propensi Active Rash 2017-06 [place] omycin ty to 07-24 [facility] adverse 00:00: st reaction 00 s to drug Codeine Propensi Active Hives 2017-06 [place] ty to 07-24 [facility] adverse 00:00: st reaction 00 s to drug Latex, Propensi Active Hives 2017-06 [place] Natural ty to 07-24 [facility] Rubber adverse 00:00: st reaction 00 s to drug BACTRIM DA Active U 2000-0 [facility] 9-11 [place] 00:[facility] BIAXIN DA Active U 2000-0 [facility] 9-11 [place] 00:[facility]: [facility] CODEINE DA Active U 2000-0 [facility] 9-11 [place] 00:[facility]: [facility] DEMEROL DA Active U 2000-0 [facility] 9-11 [place] 00:00: [facility] 00 [facility] No Known DA Active U 2000-0 [facility] Contrast 9-11 [place] Allergie 00:00: Orthope s 00 dic [facility] No Known DA Active U [facility] Food 03-06 [place] Allergie 00:00: Orthope s 00 dic [facility] No Known DA Active U [facility] Other 03-06 [place] Allergie 00:00: Orthope s 00 dic [facility]ospita l Bactrim drug Active Rash [facility] allergy ity of [place] [facility] ans Biaxin drug Active Rash [facility] allergy ity of [place] [facility] codeine drug Active Rash [facility] allergy ity of [place] [facility] Latex allergy Active Shortness of Uni vers to breath, Rash ity of [facility] [place] e [facility] ans Family History Family Member Diagnosis Comments Start Date Stop Date Source aunt Family history of Univers ity of rheumatoid [place] [facility] ns arthritis Maternal Prostate cancer [place] M ethodist grandfather Paternal Lung cancer [place] Metho dist grandfather Social History Social Habit Start Date Stop Date Quantity Comments Source Tobacco use and 2018-11-08 2018-11-08 Never used [facility] ethodist exposure 00:00:00 00:00:00 Sex Ass[birth year] [facility] ethodist 00:00:00 00:00:00 Smoking Status Start Date Stop Date Source Never smoker [place] [facility] t Medications Ordered Filled Start Stop Current Ordering Indication Dosage Frequency Signature Comments Components Source Medication Medication Date Date Medication? Clinician (SIG) Name Name hydrOXYzine Yes 50mg Q.5D Take 50 mg [place] (VISTARIL) 5-16 by mouth 2 Met hodi 25 MG 13:15: (two) st capsule 04 times a day as needed for itching. epINEPHrine 2017-06 Yes [place] (EPIPEN) 1-23 [facility] 0.3 mg/0.3 00:00: st mL 00 auto-inject or pentazocine 2017-06 Yes 1{tbl} Take 1 [place] -naloxone 1-14 tablet by [facility] di (TALWIN NX) 00:00: mouth as st 50-0.5 mg 00 needed. per tablet selegiline 2017-06 Yes 5mg QD Take 5 mg [place] (ELDEPRYL) 1-07 by mouth Metho di 5 mg 00:00: daily. st capsule 00 Glucophage Glucophage Yes Q0.5D TAKE 1 Univers 1000 MG 1000 MG 1-18 TABLET ity of Oral Tablet Oral Tablet 00:00: TWICE [place] 00 DAILY WITH Physici MEALS. ans Topamax 200 Topamax 200 2017-0 Yes Q0.5D TAKE 1 Univers MG Oral MG Oral 1-18 TABLET ity of Tablet Tablet 00:00: TWICE [place] 00 DAILY. Physici ans traMADol traMADol 2017- Yes Q0.3333D TAKE 1 Univers HCl - [...] ans Zofran 4 MG Zofran 4 MG Yes 1 Q8H TAKE 1 Univers Oral [...] daily dose 32 grams. cholecalcif 2016-06 Yes Nagi villareal leslee, 2-01 [facility] vitamin D3, 00:00: st (VITAMIN 00 D3) 1,000 unit capsule topiramate 1999-06 Yes 200mg Q.5D Take 200 [place] (TOPAMAX) 2-01 mg by [facility] 200 MG 00:00: mouth 2 st tablet 00 (two) times a day. Procedures Procedure Date / Time Performing Clinician Source Performed [U] XRAY KNEE 4 OR MORE 2019-05-13 00:00:00 Univ [facility] VWS LEFT 63719 Physicians History of Cholecystectomy [facility] Physicians History of Tubal ligation [facility] Physicians History of Breast [facility] reduction Physicians History of Abdominoplasty [facility] Physicians Plan of Care Planned Activity Planned Date Details Comments Source Future Scheduled 2021-01-24 INFLUENZA VACCINE [facility]i villareal [facility] Test 00:00:00 [code = INFLUENZA VACCINE] Future Scheduled 2013 BREAST CANCER [place] [facility] Test 00:00:00 SCREENING [code = BREAST CANCER SCREENING] Future Scheduled 2013 COLONOSCOPY SCREENING [place] [facility] 00:00:00 [code = COLONOSCOPY SCREENING] Future Scheduled 2013 SHINGLES VACCINES [place] [facility] 00:00:00 (#1) [code = SHINGLES VACCINES (#1)] Future Scheduled 1984-02-10 Screening for [place] [facility] 00:00:00 malignant neoplasm of cervix (procedure) [code = 833594442] Future Scheduled 1975 COVID-19 VACCINE (1) [facility] Test 00:00:00 [code = COVID-19 VACCINE (1)] Encounters Start End Encounter Admission Attending Care Care Encounter Source Date/Time Date/Time Type Type Clinicians Facility Department ID 2020-12-22 2020-12-22 Outpatient MIL ClarkeTO DAYS [id number] 2-20 [facility] 06:28:00 06:28:00 Mufaddal [id number] [place] [facility] 2020-10-29 2020-10-29 Outpatient MIL SparksTO RADI [id number] 2-20 [facility] 07:39:00 07:39:00 Rizwan [id number] [place] [facility] 2019-05-13 2019-05-13 Appoint[facility]RON [facility] [id number] [facility] 09:30:00 09:30:00 t; GROVER ROSENTHAL, at [facility] Gracie NESS M.D. Orthopedic Phys[facility] ci [facility] Sp[facility] 2017-07-13 2017-07-13 AppointCAMRON Chew [facility] [id number] Univers 11:00:00 11:00:00 t; BRYCE RODRIGUEZ M.D. [facility] betzaida WU M.D. [place] [facility] Results Test Description Test Time Test Comments Results Result Comments Source GLUBED 2020-12-22 10:05:00 Test Item Value Reference Range Interpretation Comme nts GLUBED (test code = GLUBED) 93 mg/dL 60-125 N [id number] 07:50:00 Test Item Value Reference Range Interpretation Comments GLUBED (test code = GLUBED) 82 mg/dL 60-125 N - MRI UP JNT W/O CONT [id number] 09:46:00 [facility] : 1965 Sex: F Patient Name: KULDIP HERR Unit No: [id number] EXAMS: CPT CODE: [id number] MRI UP [facility] W/O CONT [id number] MRI OF THE RIGHT SHOULDER DIAGNOSIS: 1. Probable focal full-thickness tear supraspinatus tendon anteriorly measuring 5 mm in AP diameter and 5 mm of retraction. There is no evidence for muscular atrophy. 2. Subscapularistendinosis without tearing, retraction or muscular atrophy. There is no evidence for biceps tendon tear or subluxation. A SLAP tear of the labrum is present. COMMENT: COMPARISON: No prior exams available. Scans were performed in the paracoronal, parasagittal and axial planes utilizing T1 , spin density with fat saturation and T2-weighting with and without fat saturation. There is infraspinatus tendinosis without tearing, retraction or muscular atrophy. The remainder the rotator cuff is as described. The acromion is horizontal with AC joint degenerative change. The superior labrum is torn. There is possible mild tearing of the posterior labrum. A moderate joint effusion is present with a minimal amount of bursal fluid. at 0946 Reported and signed by: Mauro Hallman MD CC: Rizwan Nguyen MD Technologist: Brenda Aly(Shanon) Transcribed D/ (0946) GilmerL [facility] NAME: KULDIP HERR [address] [facility]: ALAN.Rizwan Forbes MD : 1965 AGE: 55 SEX: F [place] [address] LOC: Y.MRI PHONE #: [phone] EXAM DATE: 10/29/2020 STATUS: REG CLI FAX #: [phone] RAD #: D/C DT PAGE 1 Signed Report Patient Name: KULDIP HERR Unit No: [id number] EXAMS: CPT CODE: [id number] MRI UP JNT W/[place] [id number] <Continued> OrigPrint D/T: S: 10/29/2020 (0949) [facility] NAME: KULDIP HERR [address] [place] [address] PHYS: Rizwan Freeman MD : 1965 AGE: 55 SEX: F [place] [address] LOC: Y.MRIPHONE #: [phone] EXAM DATE: 10/29/2020 STATUS: REG CLI FAX #: [phone] RAD #: D/C DT PAGE 2 Signed Report
[2021-01-01] MEDS ORDERED: METHYLPREDNISOLONE 125 MG INJ ONE (13:29)
[2021-01-01] MEDS ORDERED: DIPHENHYDRAMINE 50 MG/ML VIAL ONE (14:34)
--- NOTE | 2021-01-01 14:34 | ER ---
Nurse's Notes [facility] Name: Ilda Arndt Age: 55 yrs Sex: Female : 1965 Arrival Date: 01/01/2021 Time: 12:08 Bed 5 Private MD: Diagnosis: Acute Allergic Reaction Presentation: 01/01 12:18 Chief complaint: Patient states: Stung by a red wasp between 1st \T\ 2nd L toe that ss occurred 20 minutes ago. Pt's only complaint is that her throat feels scratchy. Denies difficulty breathing. Pt self administered epi pen and Benadryl x2 tablets. Coronavirus screen: Client denies travel out of the [place] in the last 14 days. Ebola Screen: Patient denies exposure to infectious person. Patient denies travel to an Ebola-affected area in the 21 days before illness onset. Onset: The symptoms/episode began/occurred 20 minute(s) ago. Anaphylaxis evaluation, no signs or symptoms of anaphylaxis were noted. Initial Sepsis Screen: Does the patient meet any 2 criteria? No. Patient's initial sepsis screen is negative. Does the patient have a suspected source of infection? No. Patient's initial sepsis screen is negative. Risk Assessment: Do you want to hurt yourself or someone else? Patient reports no desire to harm self or others. Onset of symptoms was January 01, 2021. 12:18 Method Of Arrival: Ambulatory ss 12:18 Acuity: ANDRE 4 ss Historical: - Allergies: 12:22 Bactrim; ss 12:22 Bees; ss 12:22 Biaxin; ss 12:22 Codeine; ss 12:22 Latex, Natural Rubber; ss - PMHx: 12:22 Arthritis; chiari malformation; Depression; Diabetes - NIDDM; ehler-danlos syndrome; ss MRSA; Upper Extremity Thrombus; - Immunization history:: Adult Immunizations up to date. - Social history:: Smoking status: Patient denies any tobacco usage or history of. Screenin:31 Abuse screen: Denies threats or abuse. Denies injuries from another. Nutritional sv screening: No deficits noted. Tuberculosis screening: No symptoms or risk factors identified. Fall Risk None identified. Assessment: 13:10 General: Appears in no apparent distress. comfortable, well groomed, well developed, sv Behavior is calm, cooperative, appropriate for age. Pain: Complains of pain in back of neck Pain currently is 3 out of 10 on a pain scale. Neuro: Level of Consciousness is awake, alert, obeys commands, Oriented to person, place, time, situation, Gait is steady, Speech is normal. Respiratory: Airway is patent Respiratory effort is even, unlabored, Respiratory pattern is regular, symmetrical. EENT: Reports itchy throat. Derm: Skin is normal. 14:00 Reassessment: Patient appears in no apparent distress at this time. Patient and/or sv family updated on plan of care and expected duration. Pain level reassessed. Patient is alert, oriented x 3, equal unlabored respirations, skin warm/dry/pink. Pt reports that she now has pain on her upper bilateral shoulders, back and mouth pain. Informed Ramiro HORN. 15:40 Reassessment: Patient appears in no apparent distress at this time. Patient and/or sv family updated on plan of care and expected duration. Pain level reassessed. Patient is alert, oriented x 3, equal unlabored respirations, skin warm/dry/pink. Patient states symptoms have improved. Vital Signs: 12:30 BP 118 / 88; Pulse 103; Resp 16; Pulse Ox 98% ; sv 12:45 BP 128 / 103; Pulse 98; Resp 16; Pulse Ox 100% ; sv 13:39 Pulse 84; Resp 16; Pulse Ox 100% ; sv 14:17 Pulse 87; Resp 16; Pulse Ox 100% ; sv ED Course: 12:08 Patient arrived in ED. wm 12:19 [facility]amiro Gill [facility] jr8 12:19 Vincent Pena MD is Attending Physician. jr8 12:22 Triage completed. ss 12:22 Arm band placed on left wrist. ss 12:27 Cheyenne Hong, NAKIA is Primary Nurse. sv 12:31 Patient has correct armband on for positive identification. Bed in low position. Call sv light in reach. Pulse ox on. NIBP on. Door closed. Head of bed elevated. 13:15 Inserted saline lock: 20 gauge in left antecubital area, using aseptic technique. sv Flushed left antecubital with 5 ml normal saline. 14:49 EKG done, by ED staff, reviewed by Ramiro HORN. [facility] 15:40 No provider procedures requiring assistance completed. IV discontinued, intact, sv bleeding controlled, No redness/swelling at site. Pressure dressing applied. Administered Medications: 13:22 CANCELLED (Physician Discretion): SOLU-Medrol (methylPREDNISolone sodium succinate) 125 sv mg IM once 13:22 Drug: SOLU-Medrol (methylPrednisoLONE) 125 mg Route: IVP; Site: left antecubital; sv 14:16 Follow up: Response: No adverse reaction sv 14:16 Drug: Benadryl (diphenhydrAMINE) 25 mg Route: IVP; Site: left antecubital; sv 14:50 Follow up: Response: No adverse reaction sv Outcome: 14:33 Discharge ordered by MD. purvis 15:40 Patient left the ED. sv 15:40 Discharged to home ambulatory. sv 15:40 Condition: stable 15:40 Discharge instructions given to patient, Instructed on discharge instructions, follow up and referral plans. medication usage, Demonstrated understanding of instructions, follow-up care, medications, Prescriptions given X 1. Signatures: Cheyenne Hong RN RN sv Smirch, Shelby, RN RN Ramiro Gill PA PA jr8 Martinez, Maria [facility] Cecile Alejandro
--- NOTE | 2021-01-01 14:34 | EDPHYS ---
Physician Documentation [facility] Name: Ilda Arndt Age: 55 yrs Sex: Female : 1965 Arrival Date: 01/01/2021 Time: 12:08 Bed 5 Private MD: ED Physician Vincent Pena HPI: 01/01 13:34 This 55 yrs old Female presents to ER via Ambulatory with complaints of Bee jr8 Sting, Allergic Reaction. 13:34 Patient stated that she was stung by wasp between the first and second toes on left jr8 side. Stated that last time this happened she had an "anaphylactic" reaction. Stated that she took 50 mg of Benadryl and her epinephrine pen prior to arrival. Patient alert, awake, and hemodynamically stable upon arrival. Still complaining of itching at this time . Severity of symptoms: At their worst the symptoms were mild in the emergency department the symptoms are unchanged. The patient has experienced a previous episode. The patient has not recently seen a physician. Historical: - Allergies: 12:22 Bactrim; ss 12:22 Bees; ss 12:22 Biaxin; ss 12:22 Codeine; ss 12:22 Latex, Natural Rubber; ss - PMHx: 12:22 Arthritis; chiari malformation; Depression; Diabetes - NIDDM; ehler-danlos syndrome; ss MRSA; Upper Extremity Thrombus; - Immunization history:: Adult Immunizations up to date. - Social history:: Smoking status: Patient denies any tobacco usage or history of. ROS: 13:34 Eyes: Negative for injury, pain, redness, and discharge, ENT: Negative for injury, jr8 pain, and discharge, Neck: Negative for injury, pain, and swelling, Cardiovascular: Negative for chest pain, palpitations, and edema, Respiratory: Negative for shortness of breath, cough, wheezing, and pleuritic chest pain, Abdomen/GI: Negative for abdominal pain, nausea, vomiting, diarrhea, and constipation, Back: Negative for injury and pain, MS/Extremity: Negative for injury and deformity, Skin: Negative for injury, rash, and discoloration, Neuro: Negative for headache, weakness, numbness, tingling, and seizure. Exam: 13:34 Constitutional: This is a well developed, well nourished patient who is awake, alert, jr8 and in no acute distress. Head/Face: Normocephalic, atraumatic. Eyes: Pupils equal round and reactive to light, extra-ocular motions intact. Lids and lashes normal. Conjunctiva and sclera are non-icteric and not injected. Cornea within normal limits. Periorbital areas with no swelling, redness, or edema. ENT: Nares patent. No nasal discharge, no septal abnormalities noted. Tympanic membranes are normal and external auditory canals are clear. Oropharynx with no redness, swelling, or masses, exudates, or evidence of obstruction, uvula midline. Mucous membranes moist. Neck: Trachea midline, no thyromegaly or masses palpated, and no cervical lymphadenopathy. Supple, full range of motion without nuchal rigidity, or vertebral point tenderness. No Meningismus. Cardiovascular: Regular rate and rhythm with a normal S1 and S2. No gallops, murmurs, or rubs. Normal PMI, no JVD. No pulse deficits. Respiratory: Lungs have equal breath sounds bilaterally, clear to auscultation and percussion. No rales, rhonchi or wheezes noted. No increased work of breathing, no retractions or nasal flaring. Abdomen/GI: Soft, non-tender, with normal bowel sounds. No distension or tympany. No guarding or rebound. No evidence of tenderness throughout. Back: No spinal tenderness. No costovertebral tenderness. Full range of motion. Skin: Warm, dry with normal turgor. Normal color with no rashes, no lesions, and no evidence of cellulitis. MS/ Extremity: Pulses equal, no cyanosis. Neurovascular intact. Full, normal range of motion. Neuro: Awake and alert, GCS 15, oriented to person, place, time, and situation. Motor strength 5/5 in all extremities. Sensory grossly intact. Vital Signs: 12:30 BP 118 / 88; Pulse 103; Resp 16; Pulse Ox 98% ; sv 12:45 BP 128 / 103; Pulse 98; Resp 16; Pulse Ox 100% ; sv 13:39 Pulse 84; Resp 16; Pulse Ox 100% ; sv 14:17 Pulse 87; Resp 16; Pulse Ox 100% ; sv MDM: 12:32 Patient medically screened. jr8 14:31 Data reviewed: vital signs, nurses notes, EKG, and as a result, I will discharge jr8 patient. Data interpreted: Pulse oximetry: on room air is 100 %. Interpretation: normal. Counseling: I had a detailed discussion with the patient and/or guardian regarding: the historical points, exam findings, and any diagnostic results supporting the discharge/admit diagnosis, the need for outpatient follow up, a family practitioner, to return to the emergency department if symptoms worsen or persist or if there are any questions or concerns that arise at home. Response to treatment: the patient's symptoms have markedly improved after treatment. 01/01 14:31 Order name: EKG - Nurse/Tech; Complete Time: 14:50 jr8 01/01 14:31 Order name: EKG; Complete Time: 14:31 jr8 Administered Medications: 13:22 CANCELLED (Physician Discretion): SOLU-Medrol (methylPREDNISolone sodium succinate) 125 sv mg IM once 13:22 Drug: SOLU-Medrol (methylPrednisoLONE) 125 mg Route: IVP; Site: left antecubital; sv 14:16 Follow up: Response: No adverse reaction sv 14:16 Drug: Benadryl (diphenhydrAMINE) 25 mg Route: IVP; Site: left antecubital; sv 14:50 Follow up: Response: No adverse reaction sv Disposition: 16:32 Co-signature as Attending Physician, Vincent Pena MD I agree with the assessment and kdr plan of care. Disposition Summary: 01/01/21 14:33 Discharge Ordered Location: Home jr8 Problem: new jr8 Symptoms: have improved jr8 Condition: Stable jr8 Diagnosis - Acute Allergic Reaction jr8 Followup: jr8 - With: Private Physician - When: 1 - 2 days - Reason: Recheck today's complaints, Continuance of care, Re-evaluation by your physician Discharge Instructions: - Discharge Summary Sheet jr8 - Anaphylactic Reaction, Adult jr8 Forms: - Medication Reconciliation Form jr8 - Thank You Letter jr8 - Antibiotic Education jr8 - Prescription Opioid Use jr8 Prescriptions: - Prednisone 20 mg Oral Tablet - take 2 tablets by ORAL route once daily for 5 days; 10 tablet; Refills: 0, jr8 Product Selection Permitted Signatures: Cheyenne Hong RN RN Vincent Liz MD MD kdr Smirch, Shelby, RN RN ss Roszak, Josh, PA PA jr8 Corrections: (The following items were deleted from the chart) 13:22 13:07 SOLU-Medrol (methylPREDNISolone sodium succinate) 125 mg IM once ordered. jr8 sv
[2021-01-01 15:49] VITALS: BP 128/103; O2SAT 100
--- NOTE | 2021-01-04 16:14 | EKG ---
Test Date: 2021-01-01 Test Time: 14:43:10 [employer]: [facility] MEASUREMENT RESULTS: Intervals: Rate: 77 LA: 144 QRSD: 68 QT: 376 QTc: 425 [place]: P: 42 LA: 144 QRS: 46 T: 62 INTERPRETIVE STATEMENTS: Normal sinus rhythm Low voltage QRS Nonspecific T wave abnormality Abnormal ECG Compared to ECG 05/20/2018 22:42:00 Low QRS voltage now present T-wave abnormality now present Sinus arrhythmia no longer present Electronically Signed On 01-04-21 16:05:43 CDT by Herbert Lee
== END 2021-01-01 15:40 | disposition home or self-care (01) ==
LOC: ER 12:05
DX: R07.0 Pain in throat (principal); T63.461A Toxic effect of venom of wasps, accidental (unintentional), initial encounter; Z88.1 Allergy status to other antibiotic agents; Z88.5 Allergy status to narcotic agent; Z91.030 Bee allergy status; Z91.040 Latex allergy status; Z91.048 Other nonmedicinal substance allergy status
CPT/HCPCS: 93005; 96375; 96374; 99284; J1200; J2930